=== PATIENT | male | born 1965 | race Caucasian/White ===

== ENCOUNTER 2016-09-19 14:22 | Inpatient (IN) | payer OTHER ==
[~2016-09-19] VITALS: Ht 182.9 cm; Wt 78.9 kg
[~2016-09-19 14:22] MED LIST: ALEVE220 MG PO; CHLORASEPTI EXT; CLEOCIN HCL300 MG PO; CLINDAMYCIN HY300 MG PO; FOLIC ACID 1 MG PO; IBUPROFEN600 MG PO; IBUPROFEN800 MG PO; LIBRIUM25 MG PO; LORAZEPAM1 MG PO; OMEPRAZOLE D/R20 MG PO; OMEPRAZOLE40 MG PO; PRILOSEC 20MG C20 MG PO; TYLENOL TAB 32325 MG PO; TYLENOL500 MG PO; Theragran Vitamins PO; VITAMIN B1100 MG PO
--- NOTE | 2016-09-19 14:29 | NUR ---
PT STATES HE FELL OUT OF TREE (APPROXIMATELY 30 FEET) ON 09/17, C/O PAIN IN R RIBS, BACK AND R ANKLE. STATES HE HIT HIS HEAD AND FEELS "SPACEY". UNSTEADY GAIT IN TRIAGE. STATES HE STOPPED DRINKING 4 DAYS AGO, (WAS DRINKING 2 PINTS VODKA AND 8 BEERS/DAY)
--- NOTE | 2016-09-19 15:08 | NUR ---
PT REPORTS HE WAS WORKING AND FELL OFF LADDER, STORY AMBIGUOUSLY CHANGES AND INTITALLY REPORTED 30 FOOT FALL AND THEN 20 FOOT AND THEN UNABLE TO QUANTIFY DISTANCE. FELL TOWARDS HIS SIDE AND ONTO TARP. NO ONE ON SCENE ACTIVATED EMS "BECAUSE THERE WASNT ANY BLOOD." STATES HE HIS BACK OF HIS HEAD, FEELS FOGGY AND OFF SINCE. NEUROS INTACT ON ARRIVAL, PUPILS EQUAL AND REACTIVE. DEMONSTRATES FULL ROM OF ALL JOINTS. STATES HE TOOK ALEVE THE FIRST AND SECOND DAY WITH MINIMAL EFFECT, NONE TODAY. LAST PO INTAKE 1400, JUST WATER. CALM AND COOPERATIVE AT THIS TIME. #18 EST AND LABS DRAWN AND SENT (BLUE, SST X2, LAV, PINK, ESCALANTE). EKG IN PROGRESS
[2016-09-19 15:13] VITALS: BP 104/60
--- NOTE | 2016-09-19 15:14 | ED MVC/FALL/TRAUMA COMPLAINT ---
History of Present Illness General Chief Complaint: Fall Stated Complaint: ADRIANNE RIB,BACK AND MEEHAN PAIN S/P FALL Source: patient Exam Limitations: no limitations Vital Signs & Intake/Output Vital Signs & Intake/Output Vital Signs Date Time Temp Pulse Resp B/P B/P Pulse O2 O2 Flow FiO2 Mean Ox Delivery Rate 09/24 0200 97.4 57 16 124/80 06/ 0000 97.4 61 16 125/83 06/19 0000 97.4 61 16 123/83 95 Room Air 18 2200 98.8 59 18 123/84 18 2000 98.8 69 18 114/47 18 1800 97.7 78 18 118/78 18 1600 97.7 58 16 120/70 18 1600 94 Room Air Room Air 09/23 1600 97.7 58 16 120/70 91 Room Air Room Air 18 1500 99.0 64 16 114/72 18 1400 99.0 76 16 113/76 18 1200 99.0 60 16 120/80 18 1200 94 Room Air Room Air 09/23 1105 Room Air 09/23 1100 98.6 64 16 125/83 18 1030 95 Room Air 18 1000 98.6 60 18 145/96 18 0800 98.6 68 16 148/90 18 0800 96 Nasal 2.0L Cannula 09/23 0800 98.6 68 16 148/90 96 Nasal 2.0L Cannula 09/23 0600 50 28 140/87 ED Intake and Output 09/24 0000 09/23 1200 Intake Total 2268 562 Output Total Balance 2268 562 Intake, IV 1198 562 Intake, Oral 1070 Allergies Coded Allergies: Penicillins (ITCHINESS 01/05/16) tramadol (DOESN'T REMEMBER 01/05/16) Reconcile Medications No Known Home Medications Triage Note: PT STATES HE FELL OUT OF TREE (APPROXIMATELY 30 FEET) ON 09/17, C/O PAIN IN R RIBS, BACK AND R ANKLE. STATES HE HIT HIS HEAD AND FEELS "SPACEY". UNSTEADY GAIT INTRIAGE. Triage Nurses Notes Reviewed? yes Onset: Gradual Duration: day(s): (3) Timing: no prior history Severity: moderate Severity Numbers: 8 Injuries/Fall Location: head, chest Method of Injury: fall Loss of Consciousness: no loss of consciousness Modifying Factors: Worsens With: breathing, palpation. HPI: Patient is a 50-year-old male with history of alcohol abuse, stopped drinking approximately 4 days ago presenting to the emergency department with chief complaint of fall off a 20 foot ladder on Saturday. Patient reports that he was at work was climbing a ladder at work and slipped off one of the rungs and fell and landed on his chest wall. Patient also reports he hit the back of his head. Denies any LOC. Reports that he's been feeling "foggy" since the incident. He didn't notice any blood after the incident and was able to get up so no one at the worksite told him to come to the emergency department for evaluation of the time. Patient came in today for worsening bilateral rib pain. Pain is worse when he palpates his ribs or when he takes a deep breath. Denies any abdominal pain. He does report shortness of breath when he tries to take a deep breath. No nausea or vomiting. Patient reports that he has not drank alcohol in the past 4 days. No other drug use. Denies any visual changes. No urinary incontinence or retention. No numbness or tingling or weakness. His son brought him to the emergency department today for evaluation because he wasn't feeling well. Has been taking [id number] Tylenol for his pain with little relief. Denies any hemoptysis. Symptoms currently moderate. Seems to be progressing so he came in for evaluation. Denies any decreased urination, no change in color of urine. Denies any change in any bowel habits. (KATERINA WEST) Past History Travel History Traveled to [place] past 21 day No Medical History Any Pertinent Medical History? see below for history Neurological: seizure, FROM ETOH DETOX EENT: NONE Cardiovascular: NONE Respiratory: NONE Gastrointestinal: pancreatitis, peptic ulcer disease Hepatic: NONE Renal: NONE Musculoskeletal: NONE Psychiatric: alcohol dependence, substance abuse Endocrine: NONE Blood Disorders: NONE Cancer(s): NONE DIRECTOR MARKETING/Reproductive: NONE History of MRSA: No History of VRE: No History of CDIFF: No Pneumonia Vaccine: 05/20/14 Tetanus Vaccine: 07/03/12 Surgical History Surgical History: VARICOSE VEIN TUMOR REMOVED CHEST WALL Psychosocial History Who do you live with Patient/Self Services at Home None What is your primary language Samoan Tobacco Use: Never used ETOH Use: denies use Family History Family History, If Any: FATHER (Hypertension, heart disease, diabetes). Alcohol abuse and dependence Grandmother (Throat cancer). Alcohol abuse and dependence Hx Contributory? No (KATERINA WEST) Review of Systems Review of Systems Constitutional: Reports: malaise. Comments Review of systems: See HPI, All other systems negative. Constitutional, no chills fever or weight loss HEENT: No visual changes no sore throat no congestion Cardiovascular: NO palpitation , orthopnea or ankle swelling Skin, no jaundice no rashes Respiratory: No cough sputum or hemoptysis GI: No nausea no vomiting : No dysuria No hematuria Muscle skeletal: Positive neck and back pain Neurologic: No numbness Psych: No stress anxiety or depression,. Heme/endocrine: No bruising no bleeding no polyuria or polydipsia Immunology: No splenectomy or history of AIDS (KATERINA WEST) Physical Exam Physical Exam General Appearance: well developed/nourished, no apparent distress, alert, awake , comfortable Comments: Well-developed well-nourished person in no acute distress HEENT: Normal EENT exam, extraocular motion intact, no nystagmus. Pupils equally round and reactive to light and accommodation, pupils are slow to response bilaterally, Nose is atraumatic. No pain to palpation over the nasal bridge. External auditory canal and Tympanic membranes clear. Pharynx normal. No swelling or edema. No step-off or bogginess palpated over entire scalp. No hematomas. No pain to palpation over entire scalp. Neck: Supple, no lymphadenopathy, normal range of motion without pain or tenderness. C-spine tenderness to palpation over C6, C7. No crepitus palpated over this area. Back: Tenderness to palpation in the lumbar spine bilaterally over the paraspinal muscles. No bony tenderness. Full range of motion. Negative straight-leg raise bilaterally. Cardiovascular: Tachycardic rate and rhythms no murmurs rubs or gallops, normal JVP Respiratory: Chest wall is tender to palpation over the right lateral ribs as well as the left lateral ribs no signs of ecchymosis or trauma. No respiratory distress.breath sounds clear to auscultation bilaterally Abdomen: Soft, nontender nondistended, no appreciable organomegaly. Normal bowel sounds. No ascites, umbilical hernia present that is reducible. No ecchymosis noted over the abdomen. Extremity: Mild edema noted over the dorsum of the right foot with ecchymosis, no calf tenderness to palpation, normal and equal pulses. Nontender to palpation over the ankles bilaterally, tib-fib region, patella or femurs.. Pelvis is stable to palpation. Neuro: Alert oriented x3, motor sensory normal, cranial nerves II through XII grossly intact. Cerebellar testing is unremarkable. Able to perform finger to nose testing without difficulty. Patellar reflexes are 2+ bilaterally. Skin: Ecchymosis noted over the dorsum of the right foot, otherwise No appreciable rash on exposed skin, skin is warm and dry. No signs of other trauma, lacerations or hematomas. Psych: Seems slightly confused but answers questions appropriately, slightly delayed response and answering questions. Core Measures ACS in differential dx? Yes Severe Sepsis Present: No Septic Shock Present: No (KIAN MATOS,KATERINA) Progress Differential Diagnosis: FOOT FRACTURE, POSTCONCUSSIVE SYNDROME, ALCOHOL WITHDRAWAL, ELECTROLYTE ABNORMALITY, DEHYDRATION, CERVICAL SPINE FRACTURE, INTRACRANIAL HEMORRHAGE, SKULL FRACTURE, DEHYDRATION, ACUTE KIDNEY INJURY, RHABDO Plan of Care: Orders Procedure Date/time Status ICU LAB BUNDLE 09/24 0500 Complete CBC WITHOUT DIFFERENTIAL 09/24 0500 Complete Restraint- Medical 09/23 1139 Active RT: Evaluation 09/23 1103 Active OXYGEN SETUP (GEN) 09/23 UNK Complete MISSING MEDICATION FORM 09/23 UNK Active Current Medications Sig/Nidhi Start time Last Medication Dose Stop Time Status Admin Chlordiazepoxide HCl 50 MG Q6 09/23 1200 AC 09/23 (Librium) 2338 Thiamine HCl 250 MG DAILY 09/23 1000 AC 09/23 (Vitamin B-1) 09/27 1030 1108 Sodium Chloride 100 ML (Normal Saline 0.9%) Ferrous Sulfate 325 MG TID 09/22 2200 AC 09/23 (Feosol) 2151 Lorazepam 100 MG Q20H 09/22 0400 AC 09/23 (Ativan Drip) 2151 Sodium Chloride 1,000 ML (Normal Saline 0.9%) Haloperidol 1 MG Q4P PRN 09/20 1600 AC 09/22 (Haldol) 2028 Lorazepam 1 MG Q2P PRN 09/20 1415 AC 09/22 (Ativan) 203 Hydromorphone HCl 0.2 MG Q6P PRN 09/19 2030 AC (Dilaudid) Acetaminophen 1,000 MG Q6P PRN 09/19 2014 AC (Ofirmev) Ibuprofen 600 MG Q6P PRN 09/19 2014 AC 09/21 (Motrin) 1610 Lorazepam 2 MG Q2P PRN 09/19 2014 AC 09/23 (Ativan) 0949 Lorazepam 1 MG Q2P PRN 09/19 2014 AC (Ativan) Laboratory Tests 09/24/16 0430: Anion Gap 8, Estimated GFR > 60, Glucose 92, Calcium 8.9, Phosphorus 4.0, Magnesium 1.8, Total Bilirubin 0.3, AST 35, ALT 46, Albumin 3.3 L, CBC w Diff NO MAN DIFF REQ, RBC 3.73 L, MCV 93.6, MCH 31.2 H, RDW 13.5, MPV 6.4 L, Gran % 54.1, Lymphocytes % 25.4, Monocytes % 17.2 H, Eosinophils % 1.9, Basophils % 1.4, Absolute Granulocytes 2.4, Absolute Lymphocytes 1.1 L, Absolute Monocytes 0.8 H, Absolute Eosinophils 0.1, Absolute Basophils 0.1, PUBS MCHC 33.3 Diagnostic Imaging: Viewed by Me: Radiology Read, CT Scan. Discussed w/RAD: Radiology Read, CT Scan. Radiology Impression: ATIENT: NOLBERTO HANSEN PRESENT AGE: 50 PATIENT ACCOUNT NO: [id number] : 67 LOCATION: [facility] ORDERING PHYSICIAN: KATERINA MATOS SERVICE DATE: 09/19/16 EXAM TYPE: CAT - CT ABD & PELVIS W/O IV CONTRAS; CT CHEST WO IV CONTRAST EXAMINATION: CT CHEST WITHOUT CONTRAST CT ABDOMEN AND PELVIS WITHOUT CONTRAST CLINICAL INFORMATION: Fall from height. Pain. COMPARISON: Lumbar spine radiographs from 05/17/2015 TECHNIQUE: Multidetector volumetric imaging was performed through the chest, abdomen and pelvis without use of contrast. Sagittal and coronal reformatted images were obtained on the technologist's workstation. Axial MIP volume rendering provided. DLP: 379 mGy-cm. FINDINGS: CHEST: Lungs: The central airways are patent. The lungs are clear with no evidence of consolidation. No pleural effusion or pneumothorax. There are no pulmonary parenchymal nodules. Mediastinum: The mediastinum is normal. Central vascular structures are unremarkable. No evidence of traumatic aortic injury. No hilar or mediastinal lymphadenopathy. The heart is of normal size. There is no pericardial effusion. Chest Wall/Axilla: No lymphadenopathy. No chest wall mass. ABDOMEN/PELVIS: Liver , Gallbladder, Biliary Tree: The liver is normal in size, shape, and attenuation. No focal hepatic lesion or biliary ductal dilatation is present. The gallbladder is unremarkable with no evidence of radiopaque gallstones, gallbladder wall thickening, or pericholecystic inflammatory changes. Pancreas: Unremarkable. Spleen: Unremarkable. Adrenal Glands: Unremarkable. Kidneys and Ureters: The kidneys are normal in size, shape, and attenuation. No hydronephrosis, hydroureter or calculi seen. No perinephric stranding. Bladder: Unremarkable. Gastrointestinal Tract: The stomach and small bowel appear unremarkable. No dilated loops of bowel or evidence of obstruction. There is prominent diverticulosis of the descending and sigmoid colon without evidence of diverticulitis.. No colonic wall thickening or adjacent inflammatory changes. No free air or free fluid. The appendix is unremarkable. Abdominal Wall: No hernia is demonstrated. Lymphovascular Structures: Lymph nodes: Normal. Vascular: Unremarkable. Pelvic Viscera: The prostate and seminal vesicles are unremarkable. OSSEOUS STRUCTURES: No suspicious sclerotic or lytic bone lesions are identified. The clavicles are intact. The sternum is intact. There is a right lateral fifth rib fracture which is mildly displaced. There is overlying pleural thickening. Nondisplaced right lateral sixth rib fracture. Vertebral body alignment is maintained. Mild loss of height at the L1, L2, and L4 vertebral bodies is noted, which appear chronic. Endplate osteophytes are seen at these levels. The pelvis is intact. The sacroiliac joints and pubic symphysis are intact. IMPRESSION: 1. Right lateral fifth rib fracture with mild overlying pleural thickening. No pneumothorax or lung contusion. 2. Nondisplaced right lateral sixth rib fracture. 3. No additional traumatic findings of the chest, abdomen, or pelvis. Colonic diverticulosis. DICTATED BY: NISH JENKINS MD DATE/TIME DICTATED:09/19/161627 SALESPERSON NEW CARS:VONNIE DATE/TIME TRANSCRIBED:09/19/161627 CONFIDENTIAL, DO NOT COPY WITHOUT APPROPRIATE AUTHORIZATION. <Electronically signed in Other Vendor System> SIGNED BY: NISH JENKINS MD 09/19/161637, PATIENT: NOLBERTO HANSEN PRESENT AGE: 50 PATIENT ACCOUNT NO: [id number] : 69 LOCATION: [facility] ORDERING PHYSICIAN: KATERINA MATOS SERVICE DATE: 09/19/16 EXAM TYPE: CAT - CT CERV SPINE WO IV CONTRAST; CT HEAD WO IV CONTRAST EXAMINATION: NONCONTRAST HEAD CT NONCONTRAST CERVICAL SPINE CT INDICATION INFORMATION: Fall. Head strike. COMPARISON: 05/17/2015 TECHNIQUE: Separate noncontrast CT examinations of the head and cervical spine were performed. Coronal and sagittal images were created for each examination at the technologist workstation. FINDINGS: Head: There is no evidence of acute intracranial hemorrhage or territorial infarction. No abnormal mass effect or midline shift is seen. Stanton to white matter differentiation is well preserved. No extra-axial fluid collections are identified. No hydrocephalus. No significant volume loss. There is no abnormal attenuation within the brain parenchyma. The osseous structures and soft tissues are normal. The mastoid air cells are well aerated. There may be a right nasal cavity polyp. This appears similar to prior. Partial opacification of the left maxillary sinus. Cervical spine: There is anatomic alignment of the vertebral bodies and posterior elements. The atlantoaxial and atlantooccipital articulations are intact. Vertebral body heights are maintained. There is disc space narrowing at C5-C6 and C6-C7 which has mildly progressed from prior. Prominent endplate osteophytes are present at these levels. No evidence of acute fracture. No prevertebral soft tissue swelling. Visualized portions of the lung apices are unremarkable. The thyroid gland is unremarkable. IMPRESSION: 1. No acute intracranial findings. 2. No acute fracture or malalignment of the cervical spine. Degenerative changes at C5-C6 and C6-C7. 3. Redemonstration of a right nasal cavity polyp. DICTATED BY: ALICE RODGERS,NISH DATE/TIME DICTATED:09/19/161623 SALESPERSON NEW CARS: VONNIE DATE/TIME TRANSCRIBED:09/19/161623 CONFIDENTIAL, DO NOT COPY WITHOUT APPROPRIATE AUTHORIZATION. <Electronically signed in Other Vendor System> SIGNED BY: ALICE RODGERS,NISH 09/19/16 1631 Initial ED EKG: SINUS TACHY AT 110 Comments: 09/19/2016 3:09:13 PM on arrival patient is alert and oriented, seems intermittently confused, answers questions slowly at times. Patient has not drank any alcohol the past 4 days. This could be withdrawal. Patient also tachycardic on arrival. We will assess a CBC, CMP, EtOH level, urine drug screen and urinalysis. Also ordered CK, CT of the head, neck, chest and abdomen. X-ray ordered of the right foot secondary to contusion. 09/19/2016 6:00:36 PM patient recently started having hallucinations. He reported that the urinal to urinate and was half full and a came out as water. Patient sustained that there is fluid in the urinal and nothing is in there. Patient started on IV Ativan. Patient will need to be admitted for alcohol detox, acute kidney injury, rhabdo. Patient also given by mouth potassium for slight hypokalemia. 09/19/2016 7:13:46 PM patient starting to have more frequent visual hallucinations. Patient will be started on Ativan drip and admitted to the ICU. Rate started at 2 mg an hour. 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 Rhabdomyolysis Qualifiers: Rhabdomyolysis type: traumatic Encounter type: initial encounter Qualified Code: T79.6XXA - Traumatic ischemia of muscle, initial encounter Rib fractures Qualifiers: Encounter type: initial encounter Rib fracture type: multiple ribs Fracture type: closed Laterality: right Qualified Code: S22.41XA - Multiple fractures of ribs, right side, initial encounter for closed fracture Referrals: AMRITA HOPPER (PCP/Family) Departure Forms: Customer Survey General Discharge Information Prescriptions: Current Visit Scripts No Known Home Medications Admission Note Spoke With: JUANITA GOMEZ MD Documentation of Exam: Documentation of any treatments & extenuating circumstances including Concerns Regarding Discharge (functional status, medication knowledge or non-compliance, living conditions, etc.) that warrant an admission rather than observation: Patient requirinG IV fluids for acute renal failure, rhabdomyolysis. Also requiring IV and by mouth Ativan for alcohol withdrawal symptoms, repeat BUN and creatinine after fluids to assess if symptoms are improving with IV hydration. Discharge at this time would be medically harmful. Patient will need Ativan taper for alcohol withdrawal. History of seizures with withdrawal in the past. (KATERINA WEST) PA/CFO Co-Sign Statement Statement: ED Attending supervision documentation- [] I saw and evaluated the patient. I have also reviewed all the pertinent lab results and diagnostic results. I agree with the findings and the plan of care as documented in the PA's/CFO's documentation. [X] I have reviewed the ED Record and agree with the PA's/CFO's documentation. [] Additions or exceptions (if any) to the PAs/CFO's note and plan are summarized below: [] (SURI RODGERS,MIRELA) Critical Care Note Critical Care Note Critical Care Time: 30-74 min (KATERINA WEST) 09/19/2016 6:00:36 PM patient recently started having hallucinations. He reported that the urinal to urinate and was half full and a came out as water. Patient sustained that there is fluid in the urinal and nothing is in there. Patient started on IV Ativan. Patient will need to be admitted for alcohol detox, acute kidney injury, rhabdo. Patient also given by mouth potassium for slight hypokalemia. 09/19/2016 7:13:46 PM patient starting to have more frequent visual hallucinations. Patient will be started on Ativan drip and admitted to the ICU. Rate started at 2 mg an hour. 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 Rhabdomyolysis Qualifiers: Rhabdomyolysis type: traumatic Encounter type: initial encounter Qualified Code: T79.6XXA - Traumatic ischemia of muscle, initial encounter Rib fractures Qualifiers: Encounter type: initial encounter Rib fracture type: multiple ribs Fracture type: closed Laterality: right Qualified Code: S22.41XA - Multiple fractures of ribs, right side, initial encounter for closed fracture Referrals: AMRITA HOPPER (PCP/Family) Departure Forms: Customer Survey General Discharge Information Prescriptions: Current Visit Scripts No Known Home Medications Admission Note Spoke With: JUANITA GOMEZ MD Documentation of Exam: Documentation of any treatments & extenuating circumstances including Concerns Regarding Discharge (functional status, medication knowledge or non-compliance, living conditions, etc.) that warrant an admission rather than observation: Patient requirinG IV fluids for acute renal failure, rhabdomyolysis. Also requiring IV and by mouth Ativan for alcohol withdrawal symptoms, repeat BUN and creatinine after fluids to assess if symptoms are improving with IV hydration. Discharge at this time would be medically harmful. Patient will need Ativan taper for alcohol withdrawal. History of seizures with withdrawal in the past. Critical Care Note Critical Care Note Critical Care Time: 30-74 min
--- NOTE | 2016-09-19 15:19 | NUR ---
CERIVAL COLLAR APPLIED TO PT. CMS PRESENT AND EQUAL IN ALL EXTREMITIES PRE AND POST APPLICATION
--- NOTE | 2016-09-19 15:21 | NUR ---
PT TO XRAY VIA STRETCHER
--- NOTE | 2016-09-19 15:26 | NUR ---
PT RETURN FROM RADIOLOGY
[2016-09-19 15:27] LABS: ABSOLUTE BASOPHIL COUNT 0 /CUMM (0.0-0.2); ABSOLUTE EOSINOPHIL COUNT 0 /CUMM (0.0-0.7); ABSOLUTE GRANULOCYTE CT 11.2 /CUMM (1.4-6.5); ABSOLUTE MONOCYTE COUNT 1.1 /CUMM (0.10-0.60); BASOPHIL % 0 % (0.0-2.0); EOSINOPHIL % 0 % (0-5); HEMATOCRIT 47.6 % (42-52); MEAN CORPUSCULAR HGB 30.9 PG (27.0-31.0); MEAN CORPUSCULAR HGB CONC 33.7 G/DL (33.0-37.0); MEAN CORPUSCULAR VOLUME 91.6 FL (80.0-94.0); MEAN PLATELET VOLUME 7.7 FL (7.4-10.4); PLATELET COUNT 107 /CUMM (130-400); RBC DISTRIBUTION WIDTH 13.6 % (11.5-14.5); WHITE BLOOD CELL COUNT 13.3 /CUMM (4.8-10.8)
[2016-09-19 15:29] LABS: PT 11.3 SEC (9.4-12.5); PTT 36 SEC (25-37)
[2016-09-19 15:31] LABS: GRANULOCYTE % 84.5 % (42.2-75.2)
--- NOTE | 2016-09-19 15:37 | RADIOLOGY REPORT ---
EXAMINATION: XR FOOT, RIGHT CLINICAL INFORMATION: Pain status post fall COMPARISON: 10/24/2009 TECHNIQUE: AP, lateral, and oblique views of the right foot. FINDINGS: No acute fracture or dislocation. Alignment is anatomic. Degenerative changes are seen at the second metatarsophalangeal joint with joint space narrowing and osteophyte formation. This is similar to the prior study. The appearance may be from prior chronic trauma. Mild degenerative changes also seen at the first metatarsophalangeal joint with joint space narrowing. Mild soft tissue swelling at the first metatarsophalangeal joint. IMPRESSION: No acute fracture or dislocation. Mild degenerative changes with chronic changes at the second metatarsophalangeal joint.
--- NOTE | 2016-09-19 16:07 | NUR ---
PT TO CT VIA STRETCHER
--- NOTE | 2016-09-19 16:30 | NUR ---
NS IVF BOLUS RUNNING PER eMAR. RT AT BEDSIDE FOR ABG
--- NOTE | 2016-09-19 16:31 | CT SCAN REPORT ---
EXAMINATION: NONCONTRAST HEAD CT NONCONTRAST CERVICAL SPINE CT INDICATION INFORMATION: Fall. Head strike. COMPARISON: 05/17/2015 TECHNIQUE: Separate noncontrast CT examinations of the head and cervical spine were performed. Coronal and sagittal images were created for each examination at the technologist workstation. FINDINGS: Head: There is no evidence of acute intracranial hemorrhage or territorial infarction. No abnormal mass effect or midline shift is seen. Stanton to white matter differentiation is well preserved. No extra-axial fluid collections are identified. No hydrocephalus. No significant volume loss. There is no abnormal attenuation within the brain parenchyma. The osseous structures and soft tissues are normal. The mastoid air cells are well aerated. There may be a right nasal cavity polyp. This appears similar to prior. Partial opacification of the left maxillary sinus. Cervical spine: There is anatomic alignment of the vertebral bodies and posterior elements. The atlantoaxial and atlantooccipital articulations are intact. Vertebral body heights are maintained. There is disc space narrowing at C5-C6 and C6-C7 which has mildly progressed from prior. Prominent endplate osteophytes are present at these levels. No evidence of acute fracture. No prevertebral soft tissue swelling. Visualized portions of the lung apices are unremarkable. The thyroid gland is unremarkable. IMPRESSION: 1. No acute intracranial findings. 2. No acute fracture or malalignment of the cervical spine. Degenerative changes at C5-C6 and C6-C7. 3. Redemonstration of a right nasal cavity polyp.
--- NOTE | 2016-09-19 16:38 | CT SCAN REPORT ---
EXAMINATION: CT CHEST WITHOUT CONTRAST CT ABDOMEN AND PELVIS WITHOUT CONTRAST CLINICAL INFORMATION: Fall from height. Pain. COMPARISON: Lumbar spine radiographs from 05/17/2015 TECHNIQUE: Multidetector volumetric imaging was performed through the chest, abdomen and pelvis without use of contrast. Sagittal and coronal reformatted images were obtained on the technologist's workstation. Axial MIP volume rendering provided. DLP: 379 mGy-cm. FINDINGS: CHEST: Lungs: The central airways are patent. The lungs are clear with no evidence of consolidation. No pleural effusion or pneumothorax. There are no pulmonary parenchymal nodules. Mediastinum: The mediastinum is normal. Central vascular structures are unremarkable. No evidence of traumatic aortic injury. No hilar or mediastinal lymphadenopathy. The heart is of normal size. There is no pericardial effusion. Chest Wall/Axilla: No lymphadenopathy. No chest wall mass. ABDOMEN/PELVIS: Liver, Gallbladder, Biliary Tree: The liver is normal in size, shape, and attenuation. No focal hepatic lesion or biliary ductal dilatation is present. The gallbladder is unremarkable with no evidence of radiopaque gallstones, gallbladder wall thickening, or pericholecystic inflammatory changes. Pancreas: Unremarkable. Spleen: Unremarkable. Adrenal Glands: Unremarkable. Kidneys and Ureters: The kidneys are normal in size, shape, and attenuation. No hydronephrosis, hydroureter or calculi seen. No perinephric stranding. Bladder: Unremarkable. Gastrointestinal Tract: The stomach and small bowel appear unremarkable. No dilated loops of bowel or evidence of obstruction. There is prominent diverticulosis of the descending and sigmoid colon without evidence of diverticulitis.. No colonic wall thickening or adjacent inflammatory changes. No free air or free fluid. The appendix is unremarkable. Abdominal Wall: No hernia is demonstrated. Lymphovascular Structures: Lymph nodes: Normal. Vascular: Unremarkable. Pelvic Viscera: The prostate and seminal vesicles are unremarkable. OSSEOUS STRUCTURES: No suspicious sclerotic or lytic bone lesions are identified. The clavicles are intact. The sternum is intact. There is a right lateral fifth rib fracture which is mildly displaced. There is overlying pleural thickening. Nondisplaced right lateral sixth rib fracture. Vertebral body alignment is maintained. Mild loss of height at the L1, L2, and L4 vertebral bodies is noted, which appear chronic. Endplate osteophytes are seen at these levels. The pelvis is intact. The sacroiliac joints and pubic symphysis are intact. IMPRESSION: 1. Right lateral fifth rib fracture with mild overlying pleural thickening. No pneumothorax or lung contusion. 2. Nondisplaced right lateral sixth rib fracture. 3. No additional traumatic findings of the chest, abdomen, or pelvis. Colonic diverticulosis.
[2016-09-19 17:33] VITALS: BP 140/93
--- NOTE | 2016-09-19 17:33 | NUR ---
PT ATTEMPTED TO PROVIDE URINE SAMPLE. WHEN PT PROVIDED THIS RN WITH URINAL, PT REPORTED HIS URINE WAS REALLY CLEAR AND LIKE "WATER". PT INFORMED THAT THERE WAS NO URINE IN URINAL. PT DISAGREED WITH RN AND POINTED TO APPROXIMATELY HALF WAY UP THE URINAL STATING THE URINE WAS TO THAT LINE
--- NOTE | 2016-09-19 17:48 | NUR ---
2ND LITER NS BOLUS STARTED. PT MEDICATED WITH ATIVAN 1MG IVP PER CIWA. PT ALSO MEDICATED WITH K-DUR 40 MEQ
[2016-09-19 18:29] VITALS: BP 154/80
--- NOTE | 2016-09-19 18:30 | NUR ---
MEDICATED WITH PO ATIVAN
--- NOTE | 2016-09-19 18:39 | NUR ---
URINE SAMPLES OBTAINED AND SENT TO LAB ([facility])
--- NOTE | 2016-09-19 19:11 | NUR ---
ATTEMPTED TO CHANGE THE PATIENT INTO GOWN AND OUT OF SHORTS, ABLE TO AMBULATE BUT STUMBLES AROUND ROOM AND THIS RN CAUGHT HIM 3 TIMES FROM FALLING. UNSTEADY ON FEET AND TREMULOUS. CONFUSED SPEECH, DISORGANIZED WITH PERIODS OF LUCIDITY WHERE HE IS ABLE TO ACCURATELY RECALL DAY AND PLACE, BUT IS FOCUSED ON STIMULI AROUND ROOM AND IS FOUND TALKING TO HIMSELF. DENIES AH/VH BUT APPEARS INTERNALLY PREOCCUPIED. CALM AND COOPERATIVE. ASSISTED BACK TO STRETCHER. DR MCCORD INFORMED AND MEDICATED WITH ADDITIONAL ATIVAL IV AND PLAN FOR 2MG PO WITH ATIVAN GTT TO START AT 2MG/HR
[2016-09-19 19:16] VITALS: BP 124/82
--- NOTE | 2016-09-19 19:27 | NUR ---
PT FOUND EATING THE PULSE OXIMETRY CORD, REDIRECTED AND PT CONFUSED WITH GARBLED SPEECH AND RAMBLING WORD SALAD. COMPLETELY DISORGANIZED MENTATION. REMAINS CALM AND REDIRECTABLE AT THIS TIME. O2 SAT STABLE, AIRWAY PATENT. CHARGE NURSE AWARE OF PLAN AND THAT PT REMAINS ON FALL PRECAUTIONS AND SITTER ORDER. DR GOMEZ IN ROOM FOR SHADIA
[2016-09-19 19:33] VITALS: BP 148/67
--- NOTE | 2016-09-19 19:39 | NUR ---
ADDITIONAL FLUID BOLUS TO LF #[id number]. ANUPAMA SUMMERS PRESENT FOR SAFETY. PT CONTINUES TO RESPOND TO VISUAL AND AUDITORY INTERNAL STIMULI. SINGING SONGS AND ATTEMPTING TO PICK APPLES CALLED MEAT STICKS. PT REDIRECTABLE AND VERBAL, BUT REMAINS DISORGANIZED
--- NOTE | 2016-09-19 19:42 | NUR ---
DR RODRIGUEZ AT BEDSIDE FOR EVAL
--- NOTE | 2016-09-19 20:08 | History & Physical ---
CHALO MANCILLA 09/19/162004: General Information and HPI MD Statement: I have seen and personally examined NOLBERTO GANN and documented this H&P. The patient is a 50 year old M who presented with a patient stated chief complaint of [ALCOHOL WITHDRAWAL]. Source of Information: family Exam Limitations: unable to give history, not alert/orientated, confusion, poor historian History of Present Illness: This is a 50-year-old gentleman with past medical history of alcohol dependence, previous alcohol withdrawal seizure on multiple occassions previous ICU admission including intubation for alcohol withdrawal, cocaine abuser, prior episode of pancreatitis, peptic ulcer disease came in after chief complain of mechanical fall and alcohol withdrawal. The patient was very anxious, tremulous,deliriuos, was hallucinating, was not alert oriented, was picking meatballs in the evelia and no significant information could be obtained from him. Most of the history taking was obtained from his son Nolberto Gann, whom we contacted at [phone].Apparently the patient has been drinking for last 20-30 years on and off. He has e period of continuos 6 months of drinking, wakes up and has a drink every day, on an average he would drink 20 nips of vodka every day. There might be a period of 3 months where he would be sober, however he would revert back to drinking again. Mr. Acuna went to a constitution party 1 week ago, where he was on top of jumpy [employer] and somebody fell on top of him, and after that he was having severe pain in his right ribs. Apparently he thought that he would have broken his ribs however never saw Dr. He reverted to drinking because of extreme pain. He has not been eating and drinking well since last 2-3 days again secondary to the pain. As per the son he looks really skinny must have lost 10-15 pounds in the last 2-3 days. He sees him every day and he was trying to bring him some water and Gatorade, however he was hallucinating and shaking, he has not taken any drink in last 3-4 days.His last drink woudl have been 3 to 4 [employer],however he wasnt completely sure about it.Mr. Acuna has had previous multiple admissions, on an average has alcohol related seizures once every year for past 8-10 years. He is also been previously admitted in ICU for Ativan drip, has been intubated secondary to alcohol intoxication. He was in IOP many years ago however in last 10-20 years he has never been in any IOP program as well. He also snorts and sniffs cocaine, uses crack cocaine on and off. The patient could not give us any significant review of systems. Allergies/Medications Allergies: Coded Allergies: Penicillins (ITCHINESS 01/05/16) tramadol (DOESN'T REMEMBER 01/05/16) Home Med list No Known Home Medications Compliance With Home Meds: FAIR Past History Travel History Traveled to [place] past 21 day No Medical History Neurological: seizure, FROM ETOH DETOX EENT: NONE Cardiovascular: NONE Respiratory: NONE Gastrointestinal: pancreatitis, peptic ulcer disease Hepatic: NONE Renal: NONE Musculoskeletal: NONE Psychiatric: alcohol dependence, substance abuse Endocrine: NONE Blood Disorders: NONE Cancer(s): NONE RETAIL SALES DIRECTOR/Reproductive: NONE History of MRSA: No History of VRE: No History of CDIFF: No Isolation History: Standard Pneumonia Vaccine: 05/20/14 Tetanus Vaccine: 07/03/12 Surgical History Surgical History: VARICOSE VEIN TUMOR REMOVED CHEST WALL Past Family/Social History Family History Relations & Conditions if any FATHER (Hypertension, heart disease, diabetes). Alcohol abuse and dependence Grandmother (Throat cancer). Alcohol abuse and dependence Psychosocial History Where do you live? Home Who Do You Live With? self Services at Home: None Primary Language: Syrian Smoking Status: Never Smoked ETOH Use: heavy use Illicit Drug Use: cocaine Functional Ability ADLs Independent: dressing, eating, toileting, bathing. Ambulation: independent IADLs Independent: shopping, housework, finances, food prep, telephone, transportation , medication admin. Review of Systems Review of Systems Constitutional: Reports: see HPI. EENTM: Reports: see HPI. Cardiovascular: Reports: see HPI. Respiratory: Reports: see HPI. GI: Reports: see HPI. Genitourinary: Reports: see HPI. Musculoskeletal: Reports: see HPI. Skin: Reports: see HPI. Neurological/Psychological: Reports: ataxia, confusion, tremors. Exam & Diagnostic Data Last 24 Hrs of Vital Signs/I&O Vital Signs Date Time Temp Pulse Resp B/P B/P Pulse O2 O2 Flow FiO2 Mean Ox Delivery Rate 09/19 1932 104 16 148/67 06/14 1931 98.0 105 16 148/67 97 Room Air 09/19 1916 98.9 90 98 124/82 09/19 1914 98.9 90 16 124/82 99 Room Air 09/19 1829 94 16 154/80 09/19 1828 94 16 154/80 96 Room Air 09/19 1735 97.8 97 18 140/93 96 Room Air 09/19 1733 97.8 97 18 140/93 09/19 1648 98.4 96 16 112/84 97 Room Air 09/19 1513 112 16 104/60 09/19 1513 96 Room Air 09/19 1512 112 16 104/60 96 Room Air 09/19 1430 95.7 112 18 105/80 96 Room Air Intake & Output 09/19 1600 09/19 0800 09/19 0000 Intake Total Output Total Balance Patient 79.379 kg Weight Weight Reported by Patient Measurement Method Physical Exam General Appearance tremulous, hallucinating, not oriented, agitated Skin milia rubra kind of maculo paular pinpoint rash on the back, and soem og the chest Skin Temp/Moisture Exam: Warm/Dry Sepsis Skin Exam (color): Normal for Ethnicity HEENT Atraumatic, PERRLA, EOMI Neck Supple, No JVD Lymphatic no lad Cardiovascular Normal S1, Normal S2, No Murmurs, tacychardic Lungs Clear to Auscultation, Normal Air Movement Abdomen Normal Bowel Sounds, Soft, No Tenderness Neurological Normal Tone, Reflexes 2+, tremors present, hallucination,complete nuero exam couldnot be done, as patient couldnot follow commands, Extremities No Clubbing, No Cyanosis, No Edema, Normal Pulses Vascular Normal Pulses Last 24 Hrs of Labs/Thomas: Laboratory Tests 09/19/161947: Sodium Pending, Potassium Pending, Chloride Pending, Carbon Dioxide Pending, Anion Gap Pending, BUN Pending, Creatinine Pending, BUN/Creatinine Ratio Pending , Glucose Pending, Calcium Pending, Total Bilirubin Pending, AST Pending, ALT Pending, Alkaline Phosphatase Pending, Total Protein Pending, Albumin Pending, Globulin Pending, Albumin/Globulin Ratio Pending 09/19/16 1836: Urine Opiates Screen < 100.00, Methadone Screen < 40, Barbiturate Screen < 60, Ur Phencyclidine Scrn < 6.00, Amphetamines Screen < 100, U Benzodiazepines Scrn < 85, Urine Cocaine Screen 903 H, Urine Cannabis Screen < 5.00, Urine Color YEL , Urine Clarity HAZY H, Urine pH 5.5, Ur Specific Gilbert >= 1.030, Urine Protein 100 H, Urine Ketones 15 H, Urine Nitrite NEG, Urine Bilirubin NEG@ICTO , Urine Urobilinogen 1.0, Ur Leukocyte Esterase NEG, Ur Microscopic SEDIMENT EXAMINED, Urine RBC RARE, Urine WBC RARE, Ur Epithelial Cells FEW, Urine Bacteria MANY H, Hyaline Casts > 75 H, Urine Hemoglobin SMALL H, Urine Glucose NEG 09/19/16 1630: pH 7.47 H, pCO2 33 L, pO2 93, HCO3 23, ABG O2 Sat (Measured) 97.0, Carboxyhemoglobin 1.4 L, O2 Concentration % RA, O2 Delivery Method RA, Phlebotomy Draw Site LEFT RADIAL 09/19/16 1505: Anion Gap 22 H, Estimated GFR 26 L, BUN/Creatinine Ratio 18.1, Glucose 150 H, Calcium 9.9, Phosphorus 5.8 H, Magnesium 1.8, Total Bilirubin 1.7 H, AST 72 H , ALT 63, Alkaline Phosphatase 106, Creatine Kinase 730 H, Troponin I < 0.01, Total Protein 9.8 H, Albumin 5.4 H, Globulin 4.4 H, Albumin/Globulin Ratio 1.2, Amylase 75, Lipase 146, PT 11.3, INR 1.08, APTT 36, CBC w Diff MAN DIFF ORDERED, RBC 5.20, MCV 91.6, MCH 30.9, RDW 13.6, MPV 7.7, Gran % 84.5 H, Lymphocytes % 7.2 L, Monocytes % 8.3, Eosinophils % 0, Basophils % 0 L, Absolute Granulocytes 11.2 H, Absolute Lymphocytes 1.0 L, Absolute Monocytes 1.1 H, Absolute Eosinophils 0, Absolute Basophils 0, Platelet Estimate DECREASED, Normocytic RBCs VERIFIED, Normochromic RBCs VERIFIED, PUBS MCHC 33.7, Serum Alcohol < 10.0 09/19/16 1501: Amylase Cancelled, Lipase Cancelled Diagnostic Data EKG Results Sinus tachycardia at the rate of 110, CO of 164, QTC of 450, no acute ST-T wave changes. Other Results SERVICE DATE: 09/19/16-1516 EXAM TYPE: CAT - CT ABD & PELVIS W/O IV CONTRAS; CT CHEST WO IV CONTRAST IMPRESSION: 1. Right lateral fifth rib fracture with mild overlying pleural thickening. No pneumothorax or lung contusion. 2. Nondisplaced right lateral sixth rib fracture. 3. No additional traumatic findings of the chest, abdomen, or pelvis. Colonic diverticulosis SERVICE DATE: 09/19/16 EXAM TYPE: RAD - XRY-FOOT COMPLETE, R IMPRESSION: No acute fracture or dislocation. Mild degenerative changes with chronic changes at the second metatarsophalangeal joint. Assessment/Plan Assessment: In summary this is a 50-year-old gentleman with past medical history of alcohol dependence with history of previous alcohol withdrawal seizure on multiple occasions, ICU admission including intubation for alcohol withdrawal, cocaine abuser, prior episode of pancreatitis, peptic ulcer disease, no other significant past medical history, current cocaine abuser came in with chief complain off pain in the right side of the chest after a mechanical fall in hallucination and delirious secondary to alcohol withdrawal. Vitals on admission MAXIMUM TEMPERATURE of 98.9, he was tachycardic with average rate around 100-120, blood pressure was found to be systolic ranging from 104- 167, diastolic ranging from 60-90 mmHg, he was 99% saturating on room air. White count of 13.3, H/H of 16.1/47.6, platelet count of 107 (baseline around 100 in the year of 2016, last value noted to be 292 in 2014, most of the platelets in 2016 have been on the lower side). INR of 1.08. ABG pH of 7.47/PCO2 of 33, PO2 of 93, bicarbonate 23, carboxyhemoglobin of 1.4. Sodium of 129, potassium of 3.5, chloride of 95, bicarbonate 24, anion gap of 10 , creatinine of 2.3 (baseline 0.9), BUN of 37, glucose of 105, initial lactic acid was negative at 0.8. UA essentially negative. Urine toxicology positive for cocaine. Serum alcohol level less than 10. CT head did not show any acute intracranial pathology. CT chest showed right lateral fifth rib fracture, which was mildly displaced, nondisplaced right lateral sixth rib fracture as well, along with chronic osteoarthritis changes. No pneumothorax or lung contusion was noted. Foot x-ray did not show any acute fracture or dislocation. CT cervical spine did not demonstrate any acute fracture. He was admitted to the telemetry floor for alcohol withdrawal, very high CIWAS, warranting IV Ativan drip and close monitoring at the critical care unit. Problem list along with assessment and plan #1 alcohol withdrawal #2 acute kidney injury, likely prerenal. #3 rhabdomyolysis. #4 anion gap metabolic acidosis secondary to alcohol intoxication. #5 thrombocytopenia most likely secondary to alcohol, chronic in nature. #6 leukocytosis most likely reactive. #7 hyponatremia. #8 hypokalemia. #9 transaminitis secondary to alcoholism #10 mechanical fall with right fifth and sixth rib fracture. We will admit the patient to the critical care unit as the patient's Ativan needs an CIWA scores are very high therefore he will likely need Ativan drip. Continue to monitor the vitals every, titrate the Ativan drip as per CIWAS. Patient is also hypokalemic and hypomagnesemic likely secondary to alcoholism, we'll need to replete it. He has chronic thrombocytopenia, especially noted that the platelets have been low since 2016. He also had elevated creatinine kinase and creatinine elevated up to 2.3. He does look dehydrated, the worsening creatinine could also be secondary to rhabdo, he will need IV hydration, if the creatinine does not show improving trend, consider nephrology in a.m. Patient will eventually need social work consult Metabolic Hypokalemic/hypomagnesemic. Anion gap metabolic acidosis secondary to alcohol intoxication. * Continue IV hydration. * Continue to replete potassium/magnesium to keep potassium above 4 and magnesium above 2. * Continue to monitor electrolytes. * Infectious disease Reactive luecocytosis * Patient did not have any fever, vitals stable. * No evidence of any kind of infection. * Mildly elevated white count most likely reactive. * Continue to follow. Respiratory. * Patient saturating fine. * Saturating greater than 95% on room air, no apparent respiratory distress. * ABG showed anion gap metabolic acidosis. * CXR negative. * Swallow evalve once more alert. Haemoncolgy/oncology. Chronic thrombocytopenia 2/2 to alcoholism * Thrombocytopenia at 107, platelets have been low since last 1-1/2 years. * Continue to trend platelets. * We will do only Alps for DVT prophylaxis with hold off on heparin due to low platelets. * H&H stable, most likely hemoconcentrated due to dehydration. * Continue to trend. Alimentary * Patient NPO. Neurologically Toxic encephalopathy * Patient hallucinating, confused, not alert and oriented. * Continue IV Ativan. * No focal neurological deficits. * Altered mental status secondary to toxic encephalopathy 2/2 to alcohol intoxication. * Order #7 was called at the emergency department as the patient was extremely agitated. * One time of Haldol was given. * Haldol when necessary if extremely agitated, watch Qtc. DVT prophylaxis with Alps. Patient is nothing by mouth for now. Mild/moderate and severe pain pathway ordered, of note patient is allergic to tramadol, clarify in a.m. what kind of allergy. DVT px : ALPS . As Ranked By This Provider Problem List: 1. 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 Rib fractures Qualifiers Encounter type: initial encounter Rib fracture type: multiple ribs Fracture type: closed Laterality: right Qualified Code: S22.41XA - Multiple fractures of ribs, right side, initial encounter for closed fracture 3. Rhabdomyolysis Qualifiers Rhabdomyolysis type: traumatic Encounter type: initial encounter Qualified Code : T79.6XXA - Traumatic ischemia of muscle, initial encounter 4. Acute kidney injury 5. Alcohol dependency 6. Thrombocytopenia 7. Alcohol dependence with withdrawal 8. Altered mental status Core Measures/Miscellaneous Acute Coronary Syndrome ACS Diagnosis: No Cerebrovascular Accident CVA/TIA Diagnosis: No Congestive Heart Failure CHF Diagnosis: No VTE (View Protocol) VTE Risk Factors: Age > 40 [facility] prophylaxis d/t: No contraindications No VTE Pharm Prophylaxis d/t: No contraindications VTE Diagnosis: No VTE Type: NONE VTE Confirmed by (Test): NONE Sepsis (View Protocol) Severe Sepsis Present: No Septic Shock Septic Shock Present: No Miscellaneous Documentation Attending Case Discussed With: JUANITA GOMEZ MD Primary Care Physician: AMRITA HOPPER Patient sees these Specialists none Level of Patient Care: Critical Care (CRI) JUANITA GOMEZ 09/19/16 2130: Attending Review Statement Attending Statement Attending Statement: examined this patient, discuss w/resident/PA/CATALOGUE COMPILER, agreed w/resident/PA/CATALOGUE COMPILER, reviewed EMR data (avail), reviewed images, amended to note Attending Assessment/Plan: CC: fall 2 days back, right rib pain, feels "spacey" PMH: Alcohol dependence, alcohol related seizures, polysubstance abuse, history of intubation related to alcohol withdrawal, history of pancreatitis Patient came to ER with complaint of right rib pain after fall 2 days back from 20 feet ladder, inclined to a tree while at work. He was not taken to ER after that fall. He slipped off the ladder, denied any loss of consciousness, dizziness, palpitations, according to ER note. According to him he sustained injury to chest, he was also feeling foggy so he came to ER. His last drink was 4 days back. He drinks 2 pints of vodka and 10 beers every day. Not much details available as when we saw the patient he was already hallucinating and was inappropriate to respond. Patient admits cocaine use. Currently denies any pain. He is picking on things and picking in air. Vitals: Afebrile, tachycardic, RR 16, blood pressure O2 saturation acceptable range. On exam: Not oriented, hyperactive, delirious, hallucinating, inappropriate speech, cooperative, no acute distress, neck supple, JVD normal, no lymphadenopathy, mucosa dry, no focal neurological deficit, actively moves all extremities, follows some instructions, no dependent edema, macular papular rash on back and upper part of the chest CVS: S1-S2, RRR. RS: Clear to auscultate bilaterally. Abdomen: Soft, NT, ND, bowel sounds present. Peripheral pulses and perfusion normal. Labs: WBC 13.3, neutrophils 84%, platelets 107, potassium 3.7, bicarbonate 22, anion gap 22, BUN 47, creatinine 2.6, total bilirubin 1.7, AST 72, ALT 63, CK 7: 30, total protein 9.8, albumin 5.4, INR 1.08 , UA positive for ketones, U tox positive for cocaine AB.47/33/93/[address] head, CT chest, CT cervical spine, CT abdomen and pelvis, x-ray foot 1. No acute intracranial findings. 2. No acute fracture or malalignment of the cervical spine. Degenerative changes at C5-C6 and C6-C7. 3. Redemonstration of a right nasal cavity polyp. 4. Right lateral fifth rib fracture with mild overlying pleural thickening. No pneumothorax or lung contusion. 5. Nondisplaced right lateral sixth rib fracture. 6. No additional traumatic findings of the chest, abdomen, or pelvis. Colonic diverticulosis. 7. No acute fracture or dislocation. Mild degenerative changes with chronic changes at the second metatarsophalangeal joint. A and P 50-year-old male with extensive alcoholism and history of recurrent withdrawal including intubation for alcohol withdrawal alcohol related seizures, drinks 2-3 pins of vodka and 10 beers every day, last drink 4 days back, presented for chest pain after the fall. Patient is actively hallucinating and delirious. Otherwise examination is unremarkable, CT chest shows fifth and sixth right sided rib fracture. Patient has thrombocytopenia which appears to be chronic, severe dehydration with hemoconcentration and hypokalemia with anion gap metabolic acidosis and acute kidney injury probably secondary to volume contraction and rhabdomyolysis. His CPK is elevated. bilirubin mildly elevated probably related to alcoholism. INR is normal He also has mild respiratory alkalosis probably secondary to rapid shallow breathing with rib fracture. Patient received IV fluids and multiple Ativan doses in ER and was started on Ativan drip. Patient will require for ICU admission for severe hyperactive delirium + Hyperactive delirium secondary to alcohol withdrawal, delirium tremens + Rhabdomyolysis + Acute kidney injury + Dehydration + Anion gap metabolic acidosis + Chronic thrombocytopenia + Reactive leukocytosis + Mild respiratory alkalosis + Fifth and sixth right rib fractures + History of alcohol related seizures - Admit to ICU - Continue gentle hydration - Continue Ativan drip titrated RASS o to -1, intermittent Haldol if required - High dose thiamine - Replace electrolytes - Follow-up mg and Po4 -Serial EKG and troponin, given his cocaine use - Nothing by mouth - One-on-one sitter - Restrains if required - Repeat CPK, John, falls, CBC, BMP, LFT in a.m. - Check lactic acid - Tylenol level - DVT prophylaxis with Alps, change to heparin if platelet stable - Inform patient's family TTS 30 min
--- NOTE | 2016-09-19 20:19 | NUR ---
SANKET 29MM CATH APPLIED WITH METERED ACOSTA. NO OUTPUT AT THIS TIME. MEDICAETD WITH ADDITIONAL 2MG ATIVAN PER ORDER AND ATIVAN GTT INITIATED AT 4MG/HR (40ML/HR) PER ORDER BY RAJEEV US AND CHARO. SITTER PRESENT FOR SAFETY. PT CONTINUES TO RESPOND TO INTERNAL STIMULI WITH DISORGANIZED GARBLED SPEECH. EXTREMITIES RIGID AND TENSE, RESISTANT. WILL CONT TO MONITOR. SINUS TACH WITHOUT ECTOPY ON CM. BP 140/92
--- NOTE | 2016-09-19 20:25 | NUR ---
PT YELLING AND SHOUTING OUT, ACTING AGGRESSIVELY WITH SITTER AND ATTEMPTING TO AMBULATE OVER SIDE RAILS OF STRETCHER. UPON STAFF ARRIVAL TO ROOM, PT ATTEMPTING TO STRIKE STAFF, PUSH PAST AND DANGEROUSLY AGITATED. UNABLE TO DEESCALATE OR REDIRECT. DR MCCORD TO BEDSIDE WITH THIS RN, CHARGE NURSE, AND UNABLE TO REDIRECT SAFELY. ATTEMPTING TO FIGHT STAFF MORE. ORDER 7 CALLED AND PT MEDICATED WITH VERSED PER ORDER, THEN IM HALDOL WITH NO EFFICACY. PT REMAINS AGITATED, FIGHTING STAFF AND THREATENING. UNABLE TO OBTAIN BP AT THIS TIME DUE TO AGITATION AND RESTLESSNESS. ADDITIONAL DOSE OF VERSED ADMINISTERED PER ORDER AND REMAINS AGITATED. SINUS TACH 120'S AND PLACED ON SUPPLIMENTAL O2. CONTINUES TO FIGHT AND PULL AGAINST 4 POINT RESTRAINTS
--- NOTE | 2016-09-19 20:28 | NUR ---
PT GOING TO ROOM 109
--- NOTE | 2016-09-19 20:56 | NUR ---
ATIVAN GTT TITRATED TO 6MG/HR PER DR MCCORD ORDER. PT WITH UNLABORED EVEN RESPIRATIONS AND CHEST RISE AND FALL. NASAL TRUMPET INSERTED TO LEFT NARE FOR AIRWAY PATENCY. 16FR ACOSTA INSERTED, STERILE TECHNIQUE MAINTAINED. PT REMAINS IN RESTRAINTS. BP 167/76 AND NORMAL SINUS 96 AT THIS TIME WITHOUT ECTOPY. LESS RESISTANT TO RESTRAINTS.
--- NOTE | 2016-09-19 21:03 | NUR ---
REPEAT TROP DRAWN AND SENT. EKG IN PROGRES
--- NOTE | 2016-09-19 21:16 | NUR ---
REPORT GIVEN TO RECEIVING RN. DISTRIBUTION BOOKED. CHARGE NURSE NOTIFIED AND SECURITY PAGED
--- NOTE | 2016-09-19 21:31 | Admission Certification ---
Admission Certification Certification Statement - As attending physician, I certify that at the time of - admission, based on clinical presentation, severity of - symptoms, need for further diagnostic testing and - therapeutic interventions, and risk of adverse outcomes - without in-hospital treatment, in my clinical assessment, - this patient requires an acute hospital stay for a minimum - of two nights or longer. I have also considered psychsocial - factors such as support system, advanced age, financial - issues, cognitive issues, and failed out-patient treatments, - past re-admission history, safety of patient, and lack of - compliance as applicable. Specific rationale supporting this admission is: Severe delirium tremens
[2016-09-19 22:00] VITALS: BP 133/78
--- NOTE | 2016-09-19 23:33 | NUR ---
@2148, PT ADMITTED FROM ER VIA STRETCHER AND ACCOMPANIED BY NURSE,TECH AND SECURITY WITH CONTINUOUS MONITORING. TRANSPORT PT TO BED WITH NO ISSUES.PLACED ON CONT MONITORING.PT AWAKEN AND CONFUSED. CIWAF AT 18 AND RESTRAINTS APPLIED PER SECURITY DUE TO INCREASE AGITATION. ATIVAN GTT CONT VIA PIV SITE.LUNG SOUNDS DIMINISHED AND ON 2L O2 WITH SATS >95%.NPO.ACOSTA PATENT WITH GOOD UO.NO PRESSURE ULCERS NOTED.SKIN INTACT BUT RASH NOTED THROUGHOUT ADRIANNE TRUNK, FRONT AND BACKSIDE. SITTER AT BEDSIDE.SAFETY PRECAUTION CONT
[2016-09-20] VITALS (10 sets, daily range): BP systolic 109–139; BP diastolic 70–86
--- NOTE | 2016-09-20 00:30 | NUR ---
PATIENT RESPONSIVE TO PAINFUL STIMULI. NOT OPENING EYES NOR FOLLOWING COMMANDS. PUPILS EQUAL AND SLUGGISH TO REACTION. ATIVAN DRIP AT 6 MG/HR. DECREASED TO 5 MG/HR. NASAL O2 ON AT 4L. O2 SAT=98%.MONITOR SINUS RHYTHM AT 86 MANUAL SC=562/70.
[2016-09-20 03:00] LABS: ABSOLUTE BASOPHIL COUNT 0 /CUMM (0.0-0.2); ABSOLUTE EOSINOPHIL COUNT 0.1 /CUMM (0.0-0.7); ABSOLUTE GRANULOCYTE CT 5.9 /CUMM (1.4-6.5); ABSOLUTE LYMPH COUNT 1.4 /CUMM (1.2-3.4); BASOPHIL % 0.2 % (0.0-2.0); EOSINOPHIL % 0.9 % (0-5); GRANULOCYTE % 70.8 % (42.2-75.2); MEAN CORPUSCULAR HGB 31.2 PG (27.0-31.0); MEAN CORPUSCULAR HGB CONC 33.7 G/DL (33.0-37.0); MEAN CORPUSCULAR VOLUME 92.6 FL (80.0-94.0); MEAN PLATELET VOLUME 7.2 FL (7.4-10.4); PLATELET COUNT 72 /CUMM (130-400); RBC DISTRIBUTION WIDTH 13.6 % (11.5-14.5); WHITE BLOOD CELL COUNT 8.4 /CUMM (4.8-10.8)
[2016-09-20 03:25] LABS: HEMATOCRIT 35.3 % (42-52); RED BLOOD CELL CT 3.82 /CUMM (4.70-6.10)
--- NOTE | 2016-09-20 03:28 | NUR ---
PATIENT RESPONDS TO TACTILE STIMULI. BEGINNING TO SPEAK BUT DIFFICULT TO UNDERSTAND.PUPILS EQUAL AND REACTIVE TO LIGHT.ATIVAN DRIP CONTINUES AT 5 MG/HR.SOFT WRIST RESTRAINTS X4 IN PLACE. PT WILL CLENCH FISTS WHEN DISTURBED.MOVES ALL EXTREMITIES.NASAL TRUMPET REMAINS IN PLACE. NASAL O2 ON AT 4L.HKE=249%.DIFFUSE RED RASH REMAINS OVER TRUNK OF BODY. BATH GIVEN.TURNED AND REPOSITIONED TO L SIDE.
--- NOTE | 2016-09-20 03:50 | NUR ---
SEEN BY PATIENT REMAINS SEDATED AND RESPONSIVE ONLY TO TACTILE STIMULI. ATIVAN DECREASED TO 4 MG/HR.
--- NOTE | 2016-09-20 08:17 | Cons- CRCU ---
CYNTHIA RODGERS,[facility] 09/20/16 0816: General Information and HPI Consulting Request Date of Consult: 09/20/16 Requested By: Dr. Dash Reason for Consult: Alcohol withdrawal that required Ativan drip Source of Information: family, old records Exam Limitations: unable to give history, confusion, intoxication History of Present Illness: 50/M with PMH of Multiple admissions for alcohol withdrawl(complicated by seizure and once required intubation ICU), pancreatitis, and PUD who was presented to the hospital yesterday with a chief complaint of right side chest pain, confusion, delirium, agitation, tremulous and hallucination. Patient was complaining of right chest pain during the last week. Patient was confused on admission, multiple stories was provided by family and patient, it's not clear if he fell from a ladder or he sustained chest trauma during a democrat with friends. Patient was in severe pain, Instead of seeking medical attention he decided to self medicate by drinking alcohol. His last drink was 4 days ago. Usually he drinks 2 pints of vodka and 10 beers every day. Patient also admits cocaine use. Allergies/Medications Allergies: Coded Allergies: Penicillins (ITCHINESS 01/05/16) tramadol (DOESN'T REMEMBER 01/05/16) Home Med List: No Known Home Medications Review of Systems Comments Patient is confused and altered, review of system cannot be obtained. Past History Travel History Traveled to [place] past 21 day No Medical History Neurological: seizure, FROM ETOH DETOX EENT: NONE Cardiovascular: NONE Respiratory: NONE, LUNG TUMOR (BENIGN) Gastrointestinal: pancreatitis, peptic ulcer disease Hepatic: NONE Renal: NONE Musculoskeletal: NONE Psychiatric: alcohol dependence, substance abuse Endocrine: NONE Blood Disorders: NONE Cancer(s): NONE MIXING OPERATOR/Reproductive: NONE Surgical History Surgical History: VARICOSE VEIN TUMOR REMOVED CHEST WALL Family History Relations & Conditions If Any: FATHER (Hypertension, heart disease, diabetes). Alcohol abuse and dependence Grandmother (Throat cancer). Alcohol abuse and dependence Psychosocial History Where Do You Live? Home Who Do You Live With? self Services at Home: None Primary Language: Tajik Smoking Status: Never Smoked ETOH Use: heavy use Illicit Drug Use: cocaine Functional Ability ADLs Independent: dressing, eating, toileting, bathing. Ambulation: independent IADLs Independent: shopping, housework, finances, food prep, telephone, transportation , medication admin. Exam & Diagnostic Data Last 24 Hrs of Vital Signs/I&O Vital Signs Date Time Temp Pulse Resp B/P B/P Pulse O2 O2 Flow FiO2 Mean Ox Delivery Rate 09/20 0800 89 24 109/75 09/20 0800 96 Nasal 4.0L Cannula 09/20 0600 83 18 109/79 09/20 0400 97.6 75 20 110/70 09/20 0400 99 Nasal 4.0L Cannula 09/20 0200 99.1 86 16 120/70 09/20 0000 99.1 86 16 120/70 09/20 0000 99.1 86 16 120/70 98 Nasal 4.0L Cannula 09/20 0000 95 Nasal 4.0L Cannula 09/19 2255 98 Nasal 2.0L Cannula 09/19 2200 97.9 93 20 133/78 09/19 2100 96 16 134/74 99 Nasal 2.0L Cannula 09/19 2051 98.1 100 16 167/76 99 Nasal 2.0L Cannula 09/19 2017 106 140/92 09/19 1933 104 16 148/67 09/19 1931 98.0 105 16 148/67 97 Room Air 09/19 1916 98.9 90 98 124/82 09/19 1914 98.9 90 16 124/82 99 Room Air 09/19 1829 94 16 154/80 09/19 1828 94 16 154/80 96 Room Air 09/19 1735 97.8 97 18 140/93 96 Room Air 09/19 1733 97.8 97 18 140/93 09/19 1648 98.4 96 16 112/84 97 Room Air 09/19 1513 112 16 104/60 09/19 1513 96 Room Air 09/19 1512 112 16 104/60 96 Room Air 09/19 1430 95.7 112 18 105/80 96 Room Air Intake & Output 09/20 1600 0615 0800 09/20 0000 Intake Total 935 360 Output Total 560 240 Balance 375 120 Intake, IV 935 360 Output, Urine 560 240 Patient 79.379 kg Weight Physical Exam General Appearance: anxious, alert and oriented but inappropriate speech, mildly condused and agitated Head: atraumatic, normal appearance Eyes: Bilateral: normal appearance, PERRL. Respiratory: normal breath sounds, chest non-tender, no respiratory distress, lungs clear Cardiovascular: regular rate/rhythm Gastrointestinal: normal bowel sounds, soft, non-tender Extremities: normal inspection, no edema Neurologic/Psych: alert, oriented x 3 Last 48 Hrs of Labs/Thomas: Laboratory Tests 09/20/16 0300: Lactic Acid Cancelled, Total Bilirubin Cancelled, Direct Bilirubin Cancelled, AST Cancelled, ALT Cancelled, Alkaline Phosphatase Cancelled, Total Protein Cancelled, Albumin Cancelled 09/20/16 0230: Anion Gap 8, Estimated GFR > 60, Glucose 106 H, Lactic Acid 0.9, Calcium 7.8 L , Phosphorus 3.5, Magnesium 2.3, Total Bilirubin 1.3, Direct Bilirubin 0.2, AST 61 H, ALT 40, Alkaline Phosphatase 74, Creatine Kinase 925 H, Troponin I < 0.01, Total Protein 6.2 L, Albumin 3.3 L, CBC w Diff NO MAN DIFF REQ, RBC 3.82 L, MCV 92.6, MCH 31.2 H, RDW 13.6, MPV 7.2 L, Gran % 70.8, Lymphocytes % 16.7 L, Monocytes % 11.4 H, Eosinophils % 0.9, Basophils % 0.2, Absolute Granulocytes 5.9, Absolute Lymphocytes 1.4, Absolute Monocytes 1.0 H, Absolute Eosinophils 0.1, Absolute Basophils 0, PUBS MCHC 33.7 09/19/16 2102: Troponin I < 0.01 09/19/16 1948: Anion Gap 10, Estimated GFR 50 L, BUN/Creatinine Ratio 24.7, Glucose 105 H, Calcium 7.9 L, Total Bilirubin 1.3, AST 54, ALT 54, Alkaline Phosphatase 78, Total Protein 7.3, Albumin 4.0, Globulin 3.3, Albumin/Globulin Ratio 1.2 09/19/16 1836: Urine Opiates Screen < 100.00, Methadone Screen < 40, Barbiturate Screen < 60, Ur Phencyclidine Scrn < 6.00, Amphetamines Screen < 100, U Benzodiazepines Scrn < 85, Urine Cocaine Screen 903 H, Urine Cannabis Screen < 5.00, Urine Color YEL , Urine Clarity HAZY H, Urine pH 5.5, Ur Specific [place] >= 1.030, Urine Protein 100 H, Urine Ketones 15 H, Urine Nitrite NEG, Urine Bilirubin NEG@ICTO , Urine Urobilinogen 1.0, Ur Leukocyte Esterase NEG, Ur Microscopic SEDIMENT EXAMINED, Urine RBC RARE, Urine WBC RARE, Ur Epithelial Cells FEW, Urine Bacteria MANY H, Hyaline Casts > 75 H, Urine Hemoglobin SMALL H, Urine Glucose NEG 09/19/16 1630: pH 7.47 H, pCO2 33 L, pO2 93, HCO3 23, ABG O2 Sat (Measured) 97.0, Carboxyhemoglobin 1.4 L, O2 Concentration % RA, O2 Delivery Method RA, Phlebotomy Draw Site LEFT RADIAL 09/19/16 1505: Anion Gap 22 H, Estimated GFR 26 L, BUN/Creatinine Ratio 18.1, Glucose 150 H, Calcium 9.9, Phosphorus 5.8 H, Magnesium 1.8, Total Bilirubin 1.7 H, AST 72 H , ALT 63, Alkaline Phosphatase 106, Creatine Kinase 730 H, Troponin I < 0.01, Total Protein 9.8 H, Albumin 5.4 H, Globulin 4.4 H, Albumin/Globulin Ratio 1.2, Amylase 75, Lipase 146, PT 11.3, INR 1.08, APTT 36, CBC w Diff MAN DIFF ORDERED, RBC 5.20, MCV 91.6, MCH 30.9, RDW 13.6, MPV 7.7, Gran % 84.5 H, Lymphocytes % 7.2 L, Monocytes % 8.3, Eosinophils % 0, Basophils % 0 L, Absolute Granulocytes 11.2 H, Absolute Lymphocytes 1.0 L, Absolute Monocytes 1.1 H, Absolute Eosinophils 0, Absolute Basophils 0, Platelet Estimate DECREASED, Normocytic RBCs VERIFIED, Normochromic RBCs VERIFIED, PUBS MCHC 33.7, Acetaminophen < 10.0 L, Serum Alcohol < 10.0 09/19/16 1501: Amylase Cancelled, Lipase Cancelled Assessment/Plan Impression/Plan: This is 50-year-old male with extensive past medical history of alcohol abuse that lead to multiple admission with multiple complications(seizures and intubation). drinks 2-3 pins of vodka and 10 beers every day, last drink was 4 days ago. Patient present with chest pain, CT chest shows fifth and sixth right sided rib fracture. On admission patient was hallucinating and delirious. on lab thrombocytopenia which appears to be chronic, severe dehydration with hemoconcentration and hypokalemia with anion gap metabolic acidosis and acute kidney injury probably secondary to volume contraction and rhabdomyolysis. #Hyperactive delirium secondary to alcohol withdrawal. * Patient on Ativan drip, will taper as possible. * Given the extensive withdrawal history we will monitoring ICU * Patient is confused and agitated so we'll continue bilateral UE soft restrains. * Patient received 500 mg of IV thiamine, will continue same dose 3 times a day for 2 days. Follow up by 250 mg IV or IM daily for 5 days.(omer) #Acute kidney injury/Rhabdomyolysis/Dehydration * Most likely his acute kidney injury secondary to dehydration and rhabdomyolysis * Continue IV hydration. * BEP daily #Chronic thrombocytopenia * Chronic since year and a half * CBC daily * Hold off anticoagulants #Leukocytosis * Most likely reactive * CBC daily * Watch for signs or symptoms suggestive of infection * Chest x-ray tomorrow #Fifth and sixth right rib fractures * Pain management as necessary DVT PPx: ALPS only Diet: Heart healthy Full code Consult Acknowledgment - Thank you for your consult request. ALEJANDRA RODGERS,[facility] 09/20/16 1341: Assessment/Plan Other Findings/Comments: Seen and examined independently NOte as above SIg etoh abuse now with dt s/p fall Rib fractures history of withdrawal seizures Prob sig chronic liver disease with thrombocytopenia REsolving LEBRON with rhabdo Leucocytosis REC IV ativan and reduce the drip Check mag and ekg if qtc ok can give low dose haldol prn aswell Other plan as above Cxr in a day Low threshold for intubartion IVf Pt is critically ill Consult Acknowledgment - Thank you for your consult request.
--- NOTE | 2016-09-20 20:21 | NUR ---
PATIENT RELEASED FROM UPPER WRIST RESTRAINTS TO EAT DINNER. ATE PIZZA,DRANK JUICE. CO OPERATIVE INITAIALLY AND FELL OFF TO SLEEP AFTER EATING. HOWEVER AWOKE LOOKING FOR HIS CLOTHES AND CELL PHONE.CELL PHONE GIVEN.STATES HE WANTS TO CALL HIS HOST.MONITOR SINUS TACHYCARDIA AT RATE OF 120. NR=[id number]. ATIVAN DRIP INCREASED TO 6 MG/HR FROM 5 MG/HR.
--- NOTE | 2016-09-20 23:46 | NUR ---
PATIENT BECAME AGRESSIVE.MAKING FISTS WITH BOTH HANDS AND TELLING ME TO RELEASE RESTRAINTS,ATTEMPTING OOB,PULLING ON ACOSTA CATHETER.ATIVAN DRIP INCREASED TO 7 MG/HR.MONITOR SINUS RHYTHM TO SINUS TACHYCARDIA.
[2016-09-21] VITALS (7 sets, daily range): BP systolic 100–125; BP diastolic 60–84
--- NOTE | 2016-09-21 02:57 | NUR ---
PATIENT ATE BOX LUNCH.AWARE TODAY IS SEPTEMBER. SOFT RESTRAINTS REPLACED AFTER LUNCH. NASAL O2 REMAINS AT 4L. MONITOR SINUS RHYTHM.
[2016-09-21 05:35] LABS: ABSOLUTE BASOPHIL COUNT 0 /CUMM (0.0-0.2); ABSOLUTE EOSINOPHIL COUNT 0 /CUMM (0.0-0.7); ABSOLUTE GRANULOCYTE CT 6.9 /CUMM (1.4-6.5); ABSOLUTE LYMPH COUNT 0.8 /CUMM (1.2-3.4); ABSOLUTE MONOCYTE COUNT 1.1 /CUMM (0.10-0.60); BASOPHIL % 0.2 % (0.0-2.0); EOSINOPHIL % 0.4 % (0-5); GRANULOCYTE % 77.7 % (42.2-75.2); MEAN CORPUSCULAR HGB 31.3 PG (27.0-31.0); MEAN CORPUSCULAR HGB CONC 33.4 G/DL (33.0-37.0); MEAN CORPUSCULAR VOLUME 93.7 FL (80.0-94.0); PLATELET COUNT 92 /CUMM (130-400); RBC DISTRIBUTION WIDTH 13.5 % (11.5-14.5); RED BLOOD CELL CT 3.42 /CUMM (4.70-6.10); WHITE BLOOD CELL COUNT 8.9 /CUMM (4.8-10.8)
--- NOTE | 2016-09-21 06:30 | NUR ---
PATIENT MORE CO OPERATIVE. DRINKING AND EATING WELL. SOFT WRISTS RELEASED TO FACILITATE EATING. BLE RESTRAINTS REMOVED
--- NOTE | 2016-09-21 07:31 | PN- Resident CRCU ---
CYNTHIA RODGERS,[facility] 09/21/16 0731: Subjective HPI/CRCU Issues: Afebrile, hemodynamically stable, mildly tachycardic, and saturating well on room air. This morning patient is anxious, agitated, and hallucinating. Patient is on Ativan drip 7 mg/h. CIWA score 2-8 since yesterday. 24 Hour Events: Patient is agitated and trying to remove Rodríguez. Objective Vital Signs & I&O Last 8 Hrs of Vitals and I&O: Vital Signs Date Time Temp Pulse Resp B/P B/P Pulse O2 O2 Flow FiO2 Mean Ox Delivery Rate 09/21 0600 91 20 125/82 09/21 0400 98.9 94 24 100/60 09/21 0200 110 20 121/84 09/21 0000 98.7 101 20 120/76 09/21 0000 98.7 101 20 100/60 96 Nasal 4.0L Cannula 09/21 0000 96 Nasal 4.0L Cannula 09/20 2200 116 20 114/77 09/20 2000 98.9 116 18 110/80 09/20 2000 93 Nasal 4.0L Cannula 09/20 1600 99.5 110 24 130/82 09/20 1600 98 Nasal 4.0L Cannula 09/20 1600 99.5 115 24 130/82 97 Nasal 4.0L Cannula 09/20 1352 99.3 115 20 139/86 09/20 1200 99.3 110 20 130/83 09/20 1200 98 Nasal 4.0L Cannula Intake & Output 09/21 1600 09/21 0800 09/21 0000 Intake Total 898 1487 Output Total 960 875 Balance -62 612 Intake, IV 538 1387 Intake, Oral 360 100 Output, Urine 960 875 Patient 78.925 kg Weight Intake & Output 09/21 1600 Intake Total Output Total Balance Patient 78.925 kg Weight Exam General Appearance: alert, awake, anxious, moderate distress Head: atraumatic, normal appearance Respiratory: normal breath sounds, chest non-tender, no respiratory distress Cardiovascular: regular rate/rhythm Gastrointestinal: normal bowel sounds, soft, non-tender Extremities: normal inspection, no edema Current Medications: Current Medications Sig/Nidhi Start time Last Medication Dose Route Stop Time Status Admin Acetaminophen 1,000 MG Q6P PRN 09/19 2014 AC IV Cyanocobalamin/ 1 BAG DAILY 09/20 1000 AC 09/20 Thiamine/Pyridoxine IV 09/22 1759 1108 Dextrose/Water 1,000 ML Haloperidol 1 MG Q4P PRN 09/20 1600 AC 09/21 IM 0926 Hydromorphone HCl 0.2 MG Q6P PRN 09/19 2030 AC IV Ibuprofen 600 MG Q6P PRN 09/19 2014 AC 09/21 PO 0907 Lorazepam 1 MG Q2P PRN 09/20 1415 AC IV Lorazepam 100 MG Q20H 09/20 0800 AC 09/21 Sodium Chloride 1,000 ML IV 0131 Lorazepam 2 MG Q2P PRN 09/19 2014 AC 09/21 PO 0906 Lorazepam 1 MG Q2P PRN 09/19 2015 AC PO Potassium Chloride 40 MEQ ONCE ONE 09/21 0745 DC 09/21 PO 09/21 0746 0901 Potassium Chloride 40 MEQ ONCE ONE 09/20 2045 CAN PO 09/20 2046 Potassium Chloride 10 MEQ Q1H 09/20 1945 DC 09/20 IV 09/20 2146 2354 Potassium Chloride 10 MEQ Q1H 09/20 0930 DC 09/20 IV 09/20 1131 1221 Potassium Phosphate 15 mMol ONE ONE 09/21 0745 AC 09/21 Dextrose/Water 250 ML IV 09/21 1148 0906 Thiamine HCl 500 MG TID 09/20 2200 AC 09/21 Sodium Chloride 100 ML IV 09/22 1031 0906 Thiamine HCl 500 MG ONCE ONE 09/20 1145 DC 09/20 Sodium Chloride 100 ML IV 09/20 1215 1227 Impression/Plan Impression/Problem List Impression: This is 50-year-old male with extensive past medical history of alcohol abuse that lead to multiple admission with multiple complications(seizures and intubation). drinks 2-3 pins of vodka and 10 beers every day, last drink was 5 days ago. Patient present with chest pain, CT chest shows fifth and sixth right sided rib fracture. on lab thrombocytopenia which appears to be chronic, severe dehydration with hemoconcentration and hypokalemia with anion gap metabolic acidosis and acute kidney injury probably secondary to volume contraction and rhabdomyolysis. Patient is still altered, confused, agitated, has a short-term problem, and shows a confabulation(gives different stories to explain his fractures every day). #Hyperactive delirium secondary to alcohol withdrawal/ DT/ possible wernicke * Patient on 7 mg/h Ativan drip, will taper as possible. Use Ativan when necessary IV * Patient still showing withdrawal symptom, we will continue ICU monitoring * Patient is agitated, hallucinating, and dangerous to health care provider. We will use a 4-point soft restraints, EKG daily, Haldol when necessary * We will continue 500 mg of IV thiamine 3 times a day for 2 days. Follow up by 250 mg IV or IM daily for 5 days.(omer) * Patient has a long history of substance abuse, we will consult psych. #Acute kidney injury/Rhabdomyolysis/Dehydration(resolved) * Most likely his acute kidney injury secondary to dehydration and rhabdomyolysis * Continue IV hydration, until he tolerates oral intake. * BEP daily #Chronic thrombocytopenia * Chronic since year and a half * CBC daily * Hold off anticoagulants #Leukocytosis(resolved) * X-ray this morning showed obesity which may represent atelectasis or pneumonia * Afebrile and Leukocytosis resolved * Watch off antibiotic, we'll start Unasyn with any suspicion of pneumonia. * CBC daily #Fifth and sixth right rib fractures * Pain management as necessary #Hypokalemia * Potassium 3.4 this a.m. up from 3.1 yesterday after he received 6 rounds of 10 mEq potassium IV * We will replete potassium as necessary DVT PPx: ALPS only Diet: Heart healthy Full code Problem List: 1. Alcohol abuse Pain Ratin Tomorrow's Labs & Rationales: CBC and ICU bundle Plan DVT/Prophylaxis: mechanical, pharmacological ALEJANDRA RODGERS,[facility] 09/21/16 1314: Attending MD Review Statement Attending Sign Off Attending Cosign Statement: I have: examined this patient, reviewed [facility] EMR data, personally reviewd images, discussd w/resident/PA/DEAN OF GRADUATE [employer]UDIES, discussed mgmt plan w/karolina, discussed mgmt plan w/CM, discussed mgmt plan w/pt, agreed w/resident/PA/DEAN OF [employer]ADU[employer]UD[employer], amended to note. Other Findings: NOte as above SIg etoh abuse now with dt s/p fall Rib fractures cXR Sugg of atx vs pna history of withdrawal seizures Prob sig chronic liver disease with thrombocytopenia REsolved LEBRON with rhabdo Leucocytosis REC IV ativan and reduce the drip if neda Check mag and ekg if qtc ok can give low dose haldol prn aswell Other plan as above IF he has worsening wbc or becomes hypoxic start iv unasyn if not hold abx Low threshold for intubartion IVf cont all meds replace potassium Pt is critically ill
--- NOTE | 2016-09-21 07:50 | RADIOLOGY REPORT ---
EXAMINATION: XR PORTABLE CHEST CLINICAL INFORMATION: Confusion with seizure. Evaluate for aspiration/pneumonia. COMPARISON: Chest CT 09/19/2016 TECHNIQUE: Portable frontal view of the chest was obtained. FINDINGS: Cardiac leads overlie the chest. There is a patchy retrocardiac opacity. No pleural effusion or pneumothorax. The cardiomediastinal silhouette is within normal limits. No acute osseous abnormality. IMPRESSION: Retrocardiac opacity which could represent atelectasis or pneumonia. Aspiration is a consideration.
--- NOTE | 2016-09-21 11:58 | NUR ---
PT BECAME INCREASINGLY AGITATED AND AGRESSIVE TOWARDS STAFF THIS AM REQUIRING CODE 10, APPLICATION OF RESTRAINTS HE WAS PULLING AT LINES, AND AN INCREASE OF HIS IV ATIVAN TO 15MG PER HOUR. DR. ROBERTS WAS IN AND ATIVAN WILL NOT BE INCREASED BEYOND 15MG, EKG WILL BE DONE, HALDOL WILL BE ORDERED ( GIVEN IM), AND IV ATIVAN DRIP WILL BE DECREASED WITH IV BOLUSES GIVEN PRN. KARLA HAS BEEN D/C/D. THE PT IS EATING AND DRINKING WELL.
--- NOTE | 2016-09-21 14:32 | Cons- Psychiatry ---
Psychiatric Consult Date of Consult: 09/21/16 Reason for Consult: Suspicious fall, confabulation, ETOH Ordered by Dr. Queenie Dash attending History of Present Illness: Identifying info: 50-year-old male presents to [facility] emergency department with chief complaint of rib pain status post fall. He has a history of alcohol use disorder. Subsequently admitted to the critical care unit in alcohol withdrawal. CC: "Actually today I'm good" HPI: Patient reports he came to the hospital because he had been in a [place] jumping with some friends when an overweight friend accidentally knocked him over and landed on his chest. He feels he broke some ribs at that point and tried to ignore it for a few days but eventually came to the hospital. Patient is poor historian, history obtained from medical record. Per H&P: "obtained from his son Sanjuanita, Armand Rene, whom we contacted at .Apparently the patient has been drinking for last 20-30 years on and off. He has a period of continuos 6 months of drinking, wakes up and has a drink every day, on an average he would drink 20 nips of vodka every day. There might be a period of 3 months where he would be sober, however he would revert back to drinking again. Mr. Acuna went to a libertarian 1 week ago, where he was on top of jumpy bounce and somebody fell on top of him, and after that he was having severe pain in his right ribs. Apparently he thought that he would have broken his ribs however never saw Dr. He reverted to drinking because of extreme pain. He has not been eating and drinking well since last 2-3 days again secondary to the pain. As per the son he looks really skinny must have lost 10-15 pounds in the last 2-3 days. He sees him every day and he was trying to bring him some water and Gatorade, however he was hallucinating and shaking, he has not taken any drink in last 3-4 days.His last drink have been 3 to 4 [employer],however he wasn't completely sure about it.Mr. Acuna has had previous multiple admissions, on an average has alcohol related seizures once every year for past 8-10 years. He is also been previously admitted in ICU for Ativan drip, has been intubated secondary to alcohol intoxication. He was in IOP many years ago however in last 10-20 years he has never been in any IOP program as well. He also snorts and sniffs cocaine, uses crack cocaine on and off." PMH: Please see the H&P for a complete listing Pancreatitis, peptic ulcer disease Past Psych History: None previously Family Psych History: Unobtained Substance History Alcohol use disorder Cocaine use disorder Sedative hypnotic use disorder -Treatment Multiple inpatient detoxes at [facility] and outpaite programs including [facility], [facility], [facility], [facility], [facility], [facility] outpatient Family Substance History: Father & grandmother - ETOH Social: . Lives alone. Abuse/Trauma: Did not obtain Current Home Psychotropic Medications: None Current Hospital Psychotropic Medications: Med Haloperidol 1 MG IM Q4P PRN 09/20/161599 Lorazepam 2 MG PO Q2P PRN 09/19/162014 Lorazepam 1 MG PO Q2P PRN 09/19/162014 Lorazepam 1 MG IV Q2P PRN 09/20/16 1415 Lorazepam 100 MG IV Q6H 09/21/16 1400 Sodium Chloride 1,000 ML Allergies: Coded Allergies: Penicillins (ITCHINESS 01/05/16) tramadol (DOESN'T REMEMBER 01/05/16) Current Medications: Current Medications Sig/Nidhi Start time Last Medication Dose Route Stop Time Status Admin Acetaminophen 1,000 MG Q6P PRN 09/19 2014 AC IV Cyanocobalamin/ 1 BAG DAILY 09/20 1000 AC 09/21 Thiamine/Pyridoxine IV 09/22 1759 1129 Dextrose/Water 1,000 ML Haloperidol 1 MG Q4P PRN 09/20 1600 AC 09/21 IM 1523 Hydromorphone HCl 0.2 MG Q6P PRN 09/19 2030 AC IV Ibuprofen 600 MG Q6P PRN 09/19 2014 AC 09/21 PO 1610 Lorazepam 100 MG Q6H 09/21 1400 AC Sodium Chloride 1,000 ML IV Lorazepam 1 MG Q2P PRN 09/20 1415 AC IV Lorazepam 100 MG Q20H 09/20 0800 DC 09/21 Sodium Chloride 1,000 ML IV 09/21 1359 0131 Lorazepam 2 MG Q2P PRN 09/19 2014 AC 09/21 PO 1609 Lorazepam 1 MG Q2P PRN 09/19 2014 AC PO Potassium Chloride 40 MEQ ONCE ONE 09/21 0745 DC 09/21 PO 09/21 0746 0901 Potassium Chloride 40 MEQ ONCE ONE 09/20 204 CAN PO 09/20 2045 Potassium Chloride 10 MEQ Q1H 09/20 194 DC 09/20 IV 09/20 2146 2354 Potassium Phosphate 15 mMol ONE ONE 09/21 0745 DC 09/21 Dextrose/Water 250 ML IV 09/21 1148 0906 Thiamine HCl 500 MG TID 09/20 2200 AC 09/21 Sodium Chloride 100 ML IV 09/22 1031 1525 Past History Past Medical History Neurological: seizure, FROM ETOH DETOX EENT: NONE Cardiovascular: NONE Respiratory: NONE, LUNG TUMOR (BENIGN) Gastrointestinal: pancreatitis, peptic ulcer disease Hepatic: NONE Renal: NONE Musculoskeletal: NONE Psychiatric: alcohol dependence, substance abuse Endocrine: NONE Blood Disorders: NONE Cancer(s): NONE TUCKPOINTER/Reproductive: NONE Past Surgical History Surgical History: VARICOSE VEIN TUMOR REMOVED CHEST WALL Psychosocial History Strengths/Capabilities: Currently hospitalized Physical Limitations (Interventions): Chronic pattern of relapse and abuse Psychiatric Treatment History Psych Treatment Psychiatric Treatment No Diagnosis: Alcohol use disorder Cocaine use disorder Sedative hypnotic use disorder Risk Factors: chronic/serious med cond., SA/[facility] hospitalized, substance abuse, lives alone, male Substance Use/Abuse History Drug Use/Abuse Substances Used/Abused Yes (as above) Substance Abuse Treatment Substance Abuse Treatment Past Substance Abuse [place] Yes (as above) Assessment/Plan Mental Status Mental Status Exam: Presentation/Appearance: Cooperative with evaluation to best of his ability. [facility]. Orientation: Oriented to self and place, year as "1916," elsa "October" Sensorium: Somnolent Eye contact: Appropriate Affect: Somewhat blunted Mood: Denies any mood disturbance Depression: Denies Anxiety: Denies Thought Content: - Denies SI/HI, AH/VH, PI. States and also believes they will not kill themselves. - Denies Hopeless/Helpless Thoughts Thought Process: Mildly confused Associations: Somewhat loose Speech: Soft somewhat slurred Judgment: Poor Insight: Poor Cognition: Memory: Impaired Attention/Concentration: Impaired Fund of Knowledge: Did not assess Abstractions: Did not assess MMSE: Did not assess Lab Results: Laboratory Tests 09/21/16 0430: Anion Gap 7, Estimated GFR > 60, Glucose 102 H, Calcium 8.1 L, Phosphorus 2.4 L, Magnesium 2.0, Total Bilirubin 0.9, AST 50, ALT 41, Albumin 3.1 L, CBC w Diff NO MAN DIFF REQ, RBC 3.42 L, MCV 93.7, MCH 31.3 H, RDW 13.5, MPV 7.0 L, Gran % 77.7 H, Lymphocytes % 9.1 L, Monocytes % 12.6 H, Eosinophils % 0.4, Basophils % 0.2, Absolute Granulocytes 6.9 H, Absolute Lymphocytes 0.8 L, Absolute Monocytes 1.1 H, Absolute Eosinophils 0, Absolute Basophils 0, PUBS MCHC 33.4 09/20/16 1745: Anion Gap 8, Estimated GFR > 60, BUN/Creatinine Ratio 16.7 09/20/16 0300: Lactic Acid Cancelled, Total Bilirubin Cancelled, Direct Bilirubin Cancelled, AST Cancelled, ALT Cancelled, Alkaline Phosphatase Cancelled, Total Protein Cancelled, Albumin Cancelled 09/20/16 0230: Anion Gap 8, Estimated GFR > 60, Glucose 106 H, Lactic Acid 0.9, Calcium 7.8 L , Phosphorus 3.5, Magnesium 2.3, Total Bilirubin 1.3, Direct Bilirubin 0.2, AST 61 H, ALT 40, Alkaline Phosphatase 74, Creatine Kinase 925 H, Troponin I < 0.01, Total Protein 6.2 L, Albumin 3.3 L, CBC w Diff NO MAN DIFF REQ, RBC 3.82 L, MCV 92.6, MCH 31.2 H, RDW 13.6, MPV 7.2 L, Gran % 70.8, Lymphocytes % 16.7 L, Monocytes % 11.4 H, Eosinophils % 0.9, Basophils % 0.2, Absolute Granulocytes 5.9, Absolute Lymphocytes 1.4, Absolute Monocytes 1.0 H, Absolute Eosinophils 0.1, Absolute Basophils 0, PUBS MCHC 33.7 09/19/16 2102: Troponin I < 0.01 09/19/16 1948: Anion Gap 10, Estimated GFR 50 L, BUN/Creatinine Ratio 24.7, Glucose 105 H, Calcium 7.9 L, Total Bilirubin 1.3, AST 54, ALT 54, Alkaline Phosphatase 78, Total Protein 7.3, Albumin 4.0, Globulin 3.3, Albumin/Globulin Ratio 1.2 09/19/16 1836: Urine Opiates Screen < 100.00, Methadone Screen < 40, Barbiturate Screen < 60, Ur Phencyclidine Scrn < 6.00, Amphetamines Screen < 100, U Benzodiazepines Scrn < 85, Urine Cocaine Screen 903 H, Urine Cannabis Screen < 5.00, Urine Color YEL , Urine Clarity HAZY H, Urine pH 5.5, Ur Specific [place] >= 1.030, Urine Protein 100 H, Urine Ketones 15 H, Urine Nitrite NEG, Urine Bilirubin NEG@ICTO , Urine Urobilinogen 1.0, Ur Leukocyte Esterase NEG, Ur Microscopic SEDIMENT EXAMINED, Urine RBC RARE, Urine WBC RARE, Ur Epithelial Cells FEW, Urine Bacteria MANY H, Hyaline Casts > 75 H, Urine Hemoglobin SMALL H, Urine Glucose NEG 09/19/16 1630: pH 7.47 H, pCO2 33 L, pO2 93, HCO3 23, ABG O2 Sat (Measured) 97.0, Carboxyhemoglobin 1.4 L, O2 Concentration % RA, O2 Delivery Method RA, Phlebotomy Draw Site LEFT RADIAL 09/19/16 1505: Anion Gap 22 H, Estimated GFR 26 L, BUN/Creatinine Ratio 18.1, Glucose 150 H, Calcium 9.9, Phosphorus 5.8 H, Magnesium 1.8, Total Bilirubin 1.7 H, AST 72 H , ALT 63, Alkaline Phosphatase 106, Creatine Kinase 730 H, Troponin I < 0.01, Total Protein 9.8 H, Albumin 5.4 H, Globulin 4.4 H, Albumin/Globulin Ratio 1.2, Amylase 75, Lipase 146, PT 11.3, INR 1.08, APTT 36, CBC w Diff MAN DIFF ORDERED, RBC 5.20, MCV 91.6, MCH 30.9, RDW 13.6, MPV 7.7, Gran % 84.5 H, Lymphocytes % 7.2 L, Monocytes % 8.3, Eosinophils % 0, Basophils % 0 L, Absolute Granulocytes 11.2 H, Absolute Lymphocytes 1.0 L, Absolute Monocytes 1.1 H, Absolute Eosinophils 0, Absolute Basophils 0, Platelet Estimate DECREASED, Normocytic RBCs VERIFIED, Normochromic RBCs VERIFIED, PUBS MCHC 33.7, Acetaminophen < 10.0 L, Serum Alcohol < 10.0 09/19/16 1501: Amylase Cancelled, Lipase Cancelled Microbiology 09/20 2239 UPPER RESP: Surveillance Culture - COMP 06/14 2240 GI: Surveillance Culture - COMP Diffential Diagnosis: Delirium due to alcohol withdrawal, resolving Alcohol use disorder Cocaine use disorder Sedative hypnotic use disorder Impression: 50-year-old male with alcohol and cocaine use disorders with chronic pattern of relapse and readmission. At present he remains somewhat confused. He would benefit from continued detox and then reevaluation of mood once more oriented. He will require substance specific follow-up and may benefit from medication to help with cravings. Provisional Treatment Plan: 1. Continue CIWA, vitamin supplementation, and Ativan as required with goal to decrease total daily amount by 20% daily once symptoms are under control. 2. We will educate patient on options for potential medications for craving mitigation once mental status has improved. 3. Appreciate social work consult for disposition planning. Thank you for including psychiatry in this case we will follow. A total of 60 minutes was spent with the patient with more than 50% of the time spent in counseling and/or coordination of care.
--- NOTE | 2016-09-21 15:44 | NUR ---
ATIVAN DECREASED TO 5MG ORDERED. PT HAS RECEIVED SECOND DOSE OF IV HALDOL.
[2016-09-22] VITALS (11 sets, daily range): BP systolic 110–152; BP diastolic 62–100
--- NOTE | 2016-09-22 | NUR ---
PATIENT AWOKE AFTER SLEEPING EARLIER. MONITOR SINUS RHYTHM AT RATE OF 88.VY=496/62.PATIENT CO OPERATIVE.INCONTINENT OF URINE,COMPLETE BED BATH GIVEN.ATIVAN DRIP AT 5 MG/HR.TAKING FOOD PO.
[2016-09-22 06:05] LABS: ABSOLUTE BASOPHIL COUNT 0 /CUMM (0.0-0.2); ABSOLUTE EOSINOPHIL COUNT 0 /CUMM (0.0-0.7); ABSOLUTE GRANULOCYTE CT 5.3 /CUMM (1.4-6.5); ABSOLUTE LYMPH COUNT 0.8 /CUMM (1.2-3.4); ABSOLUTE MONOCYTE COUNT 1.2 /CUMM (0.10-0.60); BASOPHIL % 0.5 % (0.0-2.0); EOSINOPHIL % 0.6 % (0-5); GRANULOCYTE % 72.2 % (42.2-75.2); HEMATOCRIT 31.3 % (42-52); MEAN CORPUSCULAR HGB 31.5 PG (27.0-31.0); MEAN CORPUSCULAR HGB CONC 33.3 G/DL (33.0-37.0); MEAN CORPUSCULAR VOLUME 94.6 FL (80.0-94.0); PLATELET COUNT 125 /CUMM (130-400); RBC DISTRIBUTION WIDTH 13.9 % (11.5-14.5); RED BLOOD CELL CT 3.31 /CUMM (4.70-6.10); WHITE BLOOD CELL COUNT 7.4 /CUMM (4.8-10.8)
--- NOTE | 2016-09-22 10:13 | PN- CRCU ---
Subjective HPI/Critical Care Issues: pt seen and examined on ativan 5/hr will begin po librium still with confusion afebrile 95% on room air Objective Current Medications: Current Medications Sig/Nidhi Start time Last Medication Dose Route Stop Time Status Admin Acetaminophen 1,000 MG Q6P PRN 09/19 2014 IV Cyanocobalamin/ 1 BAG DAILY 09/20 1000 AC 09/21 Thiamine/Pyridoxine IV 09/22 1759 1129 Dextrose/Water 1,000 ML Haloperidol 1 MG Q4P PRN 09/20 1600 AC 09/21 IM 1523 Hydromorphone HCl 0.2 MG Q6P PRN 09/19 2030 AC IV Ibuprofen 600 MG .STK-MED ONE 09/21 1608 DC PO 09/21 1609 Ibuprofen 600 MG Q6P PRN 09/19 2014 AC 09/21 PO 1610 Lorazepam 100 MG Q20H 09/22 0400 09/22 Sodium Chloride 1,000 ML IV 0341 Lorazepam 100 MG Q6H 09/21 1400 DC Sodium Chloride 1,000 ML IV Lorazepam 1 MG Q2P PRN 09/20 1415 AC 09/22 IV 0642 Lorazepam 100 MG Q20H 09/20 0800 DC 09/21 Sodium Chloride 1,000 ML IV 09/21 1359 0131 Lorazepam 2 MG Q2P PRN 09/19 2014 09/21 PO 1609 Lorazepam 1 MG Q2P PRN 09/19 2014 PO Potassium Phosphate 15 mMol ONE ONE 09/21 0745 DC 09/21 Dextrose/Water 250 ML IV 09/21 1148 0906 Thiamine HCl 500 MG TID 09/20 2200 09/21 Sodium Chloride 100 ML IV 09/22 1031 2115 Vital Signs & I&O Last 24 Hrs of Vitals and I&O: Vital Signs Date Time Temp Pulse Resp B/P B/P Pulse O2 O2 Flow FiO2 Mean Ox Delivery Rate 09/22 0800 98.7 80 20 142/88 09/22 0800 95 Room Air Room Air 09/22 0600 81 18 111/82 09/22 0400 98.5 74 20 120/82 09/22 0400 96 Room Air 09/22 0200 87 20 122/80 09/22 0000 97.9 88 20 110/62 09/22 0000 97.9 88 20 110/62 94 Room Air 09/22 0000 94 Room Air 09/21 2200 70 20 112/78 09/21 2000 94 Room Air 09/21 1600 98.0 84 18 114/83 98 Room Air Intake & Output 09/22 1600 09/22 0800 09/22 0000 Intake Total 1240 1387 Output Total 500 Balance 740 1387 Intake, IV 400 1147 Intake, Oral 840 240 Output, Urine 500 Exam Other Physical Findings: gen awake, some confusion heent ncat cvs s1, s2 lungs ctab abd soft, bs+ ext without edema Results Last 24 Hrs of Lab Results: Laboratory Tests 09/22/16 0359: Anion Gap 9, Estimated GFR > 60, Glucose 92, Calcium 8.6, Phosphorus 2.5, Magnesium 1.8, Total Bilirubin 0.3, AST 42, ALT 41, Albumin 3.1 L, CBC w Diff NO MAN DIFF REQ, RBC 3.31 L, MCV 94.6 H, MCH 31.5 H, RDW 13.9, MPV 7.0 L, Gran % 72.2, Lymphocytes % 10.8 L, Monocytes % 15.9 H, Eosinophils % 0.6, Basophils % 0.5, Absolute Granulocytes 5.3, Absolute Lymphocytes 0.8 L, Absolute Monocytes 1.2 H, Absolute Eosinophils 0, Absolute Basophils 0, PUBS MCHC 33.3 Impression/Plan Impression/Plan Impression/Plan: Impression 50 year old man * alcohol withdrawal and dependence and cocaine use * rib fractures * thrombocytopenia, improved Plan -librium 50mg po q6h -[facility] protocol -titrate ativan drip -on pain control -incentive spirometry if can follow direction -haldol as necessary -high dose thiamine -monitor platelets, ALPS for DVT prophylaxis - if continues to be stable tomorrow add heparin sq -iron studies, b12, folate TTS 35 min
--- NOTE | 2016-09-22 10:30 | PN- Resident CRCU ---
Subjective HPI/CRCU Issues: Afebrile, hemodynamically stable, saturating well on room air. Patient is still agitated and aggressive. This morning patient was confused and paranoid. He believes that someone is watching him through the ceiling. He still required 4 points soft medical restrains. Patient scored 0-20 since yesterday morning on CIWA score. Objective Vital Signs & I&O Last 8 Hrs of Vitals and I&O: Intake & Output 09/22 1600 Intake Total 948 Output Total 700 Balance 248 Intake, IV 848 Intake, Oral 100 Output, Urine 700 Exam General Appearance: well developed/nourished, alert, awake, anxious, agitated Head: atraumatic, normal appearance Respiratory: normal breath sounds, chest non-tender, no respiratory distress, lungs clear Cardiovascular: regular rate/rhythm Gastrointestinal: soft, non-tender Extremities: no edema Current Medications: Current Medications Sig/Nidhi Start time Last Medication Dose Route Stop Time Status Admin Acetaminophen 1,000 MG Q6P PRN 09/19 2014 IV Chlordiazepoxide HCl 50 MG Q6 09/22 1200 AC 09/22 PO 1300 Cyanocobalamin/ 1 BAG DAILY 09/20 1000 AC 09/22 Thiamine/Pyridoxine IV 09/22 1759 1057 Dextrose/Water 1,000 ML Haloperidol 1 MG Q4P PRN 09/20 1600 AC 09/21 IM 1523 Hydromorphone HCl 0.2 MG Q6P PRN 09/19 2030 AC IV Ibuprofen 600 MG Q6P PRN 09/19 2014 AC 09/21 PO 1610 Lorazepam 100 MG Q20H 09/22 0400 AC 09/22 Sodium Chloride 1,000 ML IV 0341 Lorazepam 100 MG Q6H 09/21 1400 DC Sodium Chloride 1,000 ML IV Lorazepam 1 MG Q2P PRN 09/20 1415 AC 09/22 IV 0642 Lorazepam 2 MG Q2P PRN 09/19 2014 AC 09/21 PO 1609 Lorazepam 1 MG Q2P PRN 09/19 2014 PO Thiamine HCl 500 MG TID 09/20 2200 DC 09/22 Sodium Chloride 100 ML IV 09/22 1031 1058 Impression/Plan Impression/Problem List Impression: This is 50-year-old male with extensive past medical history of alcohol abuse that lead to multiple admission with multiple complications(seizures and intubation). Patient present with chest pain, CT chest shows fifth and sixth right sided rib fracture. on lab thrombocytopenia which appears to be chronic, severe dehydration with hemoconcentration and hypokalemia with anion gap metabolic acidosis and acute kidney injury probably secondary to volume contraction and rhabdomyolysis. Patient is still altered, confused, agitated, has a short-term problem. #Hyperactive delirium secondary to alcohol withdrawal/ DT/ possible wernicke * Patient on 5 mg/h Ativan drip, will taper as possible. Use Ativan when necessary IV * We'll start patient on Librium 50 mg every 6 * Patient still showing withdrawal symptom, we will continue ICU monitoring * Patient is agitated, hallucinating, and dangerous to health care provider. We will continue a 4-point soft restraints, EKG daily, Haldol when necessary * He received 500 mg of IV thiamine 3 times a day for 2 days. Starting tomorrow we will give 250 mg IV daily for 5 days.(wernicke) * Patient has a long history of substance abuse we will follow psych recommendations #Acute kidney injury/Rhabdomyolysis/Dehydration(resolved) * Most likely his acute kidney injury secondary to dehydration and rhabdomyolysis * Continue IV hydration, until he tolerates oral intake. * BEP daily #Chronic thrombocytopenia * Chronic since year and a half * CBC daily * Hold off anticoagulants, if continue to improve and stable tomorrow we will start DVT prophylaxis #Leukocytosis(resolved) * X-ray this morning showed obesity which may represent atelectasis or pneumonia * Afebrile and Leukocytosis resolved * Watch off antibiotic, we'll start Unasyn with any suspicion of pneumonia. * CBC daily #Fifth and sixth right rib fractures * Pain management as necessary #Hypokalemia * Potassium 4.2 this a.m. up from 3.4 yesterday * We will replete potassium, magnesium and phosphorus as necessary #Macrocytic anemia -B12 and folic acid within normal limits -Low iron and TIBC were normal ferritin. -This most likely secondary to alcohol abuse. DVT PPx: ALPS only Diet: Heart healthy Full code Problem List: 1. Alcohol abuse Pain Ratin Tomorrow's Labs & Rationales: CBC and ICU bundle Plan DVT/Prophylaxis: mechanical, pharmacological
--- NOTE | 2016-09-22 18:55 | NUR ---
Received patient feeding himself and playing with his cell phone. Ativan gtt running at 5 mg/hr. PO librium started. CIWA 9-15. NSR 70s-90s on the monitor and SBP 130s-150s. On room air, lungs clear upon auscultation 96-99% RR-17. Patient noted to be increasingly anxious throughout the day and hallucinating. Called security to change patient's incontinence in the afternoon because patient was threatening the staff and making gun/shooting noises. [address] and reinformed. Banana bag running at 125 mls/hr. Safety maintained. Patient given frequent reorientation/reassurance. Bed alarm in place.
--- NOTE | 2016-09-22 20:34 | NUR ---
PATIENT ALERT.ORIGINALLY ABLE TO BE REDIRECTED, HOWEVER BECAME INCREASINGLY AGITATED.TAKING OFF LEADS,ATTEMPTING TO REMOVE IV,BECOMING AGRESSIVE TO STAFF.THREW ENSURE BOTTLE ACROSS THE ROOM.ATIVAN BOLUS GIVEN.IM HALDOL DOSE GIVEN. SOFT RESTRAINTS X4 REMAIN.PT WAS AWARE HE WAS IN [facility].
[2016-09-23] VITALS (14 sets, daily range): BP systolic 113–148; BP diastolic 47–96
--- NOTE | 2016-09-23 01:41 | NUR ---
PT RESTLESS AND AGITATED,TRYING TO GETT OOB. ON LIBRIUM AND ATIVAN GTT AT 5MG/H. S X [address]DENIES PAIN AT THIS TIME. SATURATION ON RA 87%, PLACED ON 2L, SATURATION 96%. ABDOMEN SOFT, NORMOACTIVE BS. INCONTINENT OF URINE KEPT CLEAN AND DRY.
[2016-09-23 04:42] LABS: ABSOLUTE BASOPHIL COUNT 0 /CUMM (0.0-0.2); ABSOLUTE EOSINOPHIL COUNT 0.1 /CUMM (0.0-0.7); ABSOLUTE MONOCYTE COUNT 0.9 /CUMM (0.10-0.60); BASOPHIL % 0.7 % (0.0-2.0); EOSINOPHIL % 1.2 % (0-5); GRANULOCYTE % 59.4 % (42.2-75.2); HEMATOCRIT 32.2 % (42-52); MEAN CORPUSCULAR HGB 31.4 PG (27.0-31.0); MEAN CORPUSCULAR HGB CONC 33.7 G/DL (33.0-37.0); MEAN CORPUSCULAR VOLUME 93.1 FL (80.0-94.0); MEAN PLATELET VOLUME 7.2 FL (7.4-10.4); PLATELET COUNT 185 /CUMM (130-400); RBC DISTRIBUTION WIDTH 13.6 % (11.5-14.5); RED BLOOD CELL CT 3.47 /CUMM (4.70-6.10); WHITE BLOOD CELL COUNT 5.1 /CUMM (4.8-10.8)
--- NOTE | 2016-09-23 09:26 | PN- Resident CRCU ---
Subjective HPI/CRCU Issues: Alcohol withdrawal 24 Hour Events: Seen and examined at bedside. Patient was mildly agitated and was holding on the food tray refusing to let it go. He is however alert and oriented to place. No acute overnight event of seizures reported. CIWA score aroun 11. Still on ATIVAN srip at 8mg/hr. Objective Vital Signs & I&O Last 8 Hrs of Vitals and I&O: Vital Signs Date Time Temp Pulse Resp B/P B/P Pulse O2 O2 Flow FiO2 Mean Ox Delivery Rate 09/23 1105 Room Air 09/23 1100 98.6 64 16 125/83 09/23 1030 95 Room Air 09/23 1000 98.6 60 18 145/96 09/23 0800 98.6 68 16 148/90 09/23 0800 96 Nasal 2.0L Cannula 09/23 0800 98.6 68 16 148/90 96 Nasal 2.0L Cannula 09/23 0600 50 28 140/87 09/23 0400 97.1 85 32 138/70 09/23 0400 97 Nasal 2.0L Cannula 09/23 0200 62 26 145/89 09/23 0000 97.6 63 22 136/70 09/23 0000 96 Nasal 2.0L Cannula 09/23 0000 97.6 63 22 136/70 96 Nasal 2.0L Cannula 09/22 2000 95 Room Air 09/22 1800 98.2 66 30 149/95 09/22 1600 98.3 62 24 146/100 09/22 1600 96 Room Air Room Air 09/22 1600 98.3 62 24 146/100 96 Room Air Room Air Intake & Output 09/23 1600 09/23 0800 09/23 0000 Intake Total 562 1321 Output Total 1000 Balance 562 321 Intake, IV 562 1201 Intake, Oral 120 Output, Urine 1000 Exam General Appearance: awake, anxious Head: atraumatic Respiratory: normal breath sounds, chest non-tender, no respiratory distress Cardiovascular: regular rate/rhythm Gastrointestinal: normal bowel sounds, soft, non-tender Extremities: normal inspection, normal capillary refill, normal range of motion, no edema Current Medications: Current Medications Sig/Nidhi Start time Last Medication Dose Route Stop Time Status Admin Acetaminophen 1,000 MG Q6P PRN 09/19 2014 AC IV Chlordiazepoxide HCl 50 MG Q6 09/23 1200 AC 09/23 PO 1214 Chlordiazepoxide HCl 50 MG Q6 09/22 1200 DC 09/23 PO 0548 Cyanocobalamin/ 1 BAG DAILY 09/20 1000 DC 09/22 Thiamine/Pyridoxine IV 09/22 1759 1057 Dextrose/Water 1,000 ML Ferrous Sulfate 325 MG TID 09/22 2200 AC 09/23 PO 0946 Haloperidol 1 MG Q4P PRN 09/20 1600 AC 09/22 IM 2028 Hydromorphone HCl 0.2 MG Q6P PRN 09/19 2030 AC IV Ibuprofen 600 MG Q6P PRN 09/19 2014 AC 09/21 PO 1610 Lorazepam 100 MG Q20H 09/22 0400 AC 09/22 Sodium Chloride 1,000 ML IV 2340 Lorazepam 1 MG Q2P PRN 09/20 1415 AC 09/22 IV 2032 Lorazepam 2 MG Q2P PRN 09/19 2014 AC 09/23 PO 0949 Lorazepam 1 MG Q2P PRN 09/19 2014 AC PO Magnesium Sulfate 1 GM Q2H 09/23 0930 DC 09/23 Dextrose/Water 100 ML IV 09/23 1329 1152 Potassium Chloride 40 MEQ ONCE ONE 09/23 0930 DC 09/23 PO 09/23 0931 0946 Thiamine HCl 250 MG DAILY 09/23 1000 AC 09/23 Sodium Chloride 100 ML IV 09/27 1030 1108 Impression/Plan Impression/Problem List Impression: This is 50-year-old male with extensive past medical history of alcohol abuse that lead to multiple admission with multiple complications(seizures and intubation). Patient present with chest pain, CT chest shows fifth and sixth right sided rib fracture. on lab thrombocytopenia which appears to be chronic, severe dehydration with hemoconcentration and hypokalemia with anion gap metabolic acidosis and acute kidney injury probably secondary to volume contraction and rhabdomyolysis. Patient is still altered, confused, agitated, has a short-term problem. #Hyperactive delirium secondary to alcohol withdrawal/ DT/ possible wernicke * Patient on 6 mg/h Ativan drip, will taper as possible. * Wi'll continue patient on Librium 50 mg every 6 * Patient still showing withdrawal symptom, we will continue ICU monitoring * 10 used to be agitated requiring soft 4 and possibly. * He received 500 mg of IV thiamine 3 times a day for 2 days. Today 250 mg IV daily for 5 days.(wernicke) * Patient has a long history of substance abuse we will follow psych recommendations #Acute kidney injury/Rhabdomyolysis/Dehydration(resolved) * Most likely his acute kidney injury secondary to dehydration and rhabdomyolysis * Continue IV hydration, until he tolerates oral intake. * BEP daily #Chronic thrombocytopenia * Chronic since year and a half * CBC daily * Hold off anticoagulants, if continue to improve and stable tomorrow we will start DVT prophylaxis #Leukocytosis(resolved) * X-ray this morning showed obesity which may represent atelectasis or pneumonia * Afebrile and Leukocytosis resolved * Watch off antibiotic, we'll start Unasyn with any suspicion of pneumonia. * CBC daily #Fifth and sixth right rib fractures * Pain management as necessary #Hypokalemia * We will replete potassium, magnesium and phosphorus as necessary #Macrocytic anemia -B12 and folic acid within normal limits -Low iron and TIBC were normal ferritin. -This most likely secondary to alcohol abuse. Problem List: 1. Alcohol withdrawal syndrome Pain Ratin Tomorrow's Labs & Rationales: ICU BUNDLE Plan DVT/Prophylaxis: mechanical, pharmacological
--- NOTE | 2016-09-23 09:27 | PN- CRCU ---
Subjective HPI/Critical Care Issues: pt seen and examined continued on benzos no events afebrile Objective Current Medications: Current Medications Sig/Nidhi Start time Last Medication Dose Route Stop Time Status Admin Acetaminophen 1,000 MG Q6P PRN 09/19 2014 AC IV Chlordiazepoxide HCl 50 MG Q6 09/22 1200 AC 09/23 PO 0548 Cyanocobalamin/ 1 BAG DAILY 09/20 1000 DC 09/22 Thiamine/Pyridoxine IV 09/22 1759 1057 Dextrose/Water 1,000 ML Ferrous Sulfate 325 MG TID 09/22 2200 AC 09/22 PO 2120 Haloperidol 1 MG Q4P PRN 09/20 1600 AC 09/22 IM 2028 Hydromorphone HCl 0.2 MG Q6P PRN 09/19 2029 AC IV Ibuprofen 600 MG Q6P PRN 09/19 2014 AC 09/21 PO 1610 Lorazepam 100 MG Q20H 09/22 0400 AC 09/22 Sodium Chloride 1,000 ML IV 2340 Lorazepam 1 MG Q2P PRN 09/20 1415 AC 09/22 IV 2032 Lorazepam 2 MG Q2P PRN 09/19 2014 AC 09/21 PO 1609 Lorazepam 1 MG Q2P PRN 09/19 2014 AC PO Thiamine HCl 250 MG DAILY 09/23 1000 AC Sodium Chloride 100 ML IV 09/27 1030 Thiamine HCl 500 MG TID 09/20 2200 DC 09/22 Sodium Chloride 100 ML IV 09/22 1031 1058 Vital Signs & I&O Last 24 Hrs of Vitals and I&O: Vital Signs Date Time Temp Pulse Resp B/P B/P Pulse O2 O2 Flow FiO2 Mean Ox Delivery Rate 09/23 0800 98.6 68 16 148/90 09/23 0800 96 Nasal 2.0L Cannula 09/23 0800 98.6 68 16 148/90 96 Nasal 2.0L Cannula 09/23 0600 50 28 140/87 09/23 0400 97.1 85 32 138/70 09/23 0400 97 Nasal 2.0L Cannula 09/23 0200 62 26 145/89 09/23 0000 97.6 63 22 136/70 09/23 0000 96 Nasal 2.0L Cannula 09/23 0000 97.6 63 22 136/70 96 Nasal 2.0L Cannula 09/22 2000 95 Room Air 09/22 1800 98.2 66 30 149/95 09/22 1600 98.3 62 24 146/100 09/22 1600 96 Room Air Room Air 09/22 1600 98.3 62 24 146/100 96 Room Air Room Air 09/22 1400 9838.0 702 20 152/99 09/22 1300 98.8 74 17 133/96 09/22 1200 98.8 66 17 140/90 09/22 1200 96 Room Air Room Air 09/22 1000 98.7 74 17 144/92 Intake & Output 09/23 1600 09/23 0800 09/23 0000 Intake Total 562 1321 Output Total 1000 Balance 562 321 Intake, IV 562 1201 Intake, Oral 120 Output, Urine 1000 Exam Other Physical Findings: gen awake, some confusion heent ncat cvs s1, s2 lungs ctab abd soft, bs+ ext without edema Results Last 24 Hrs of Lab Results: Laboratory Tests 09/23/16 0412: Anion Gap 8, Estimated GFR > 60, Glucose 88, Calcium 8.8, Phosphorus 3.6, Magnesium 1.5 L, Total Bilirubin 0.4, AST 46, ALT 46, Albumin 3.3 L, CBC w Diff NO MAN DIFF REQ, RBC 3.47 L, MCV 93.1, MCH 31.4 H, RDW 13.6, MPV 7.2 L, Gran % 59.4, Lymphocytes % 20.2 L, Monocytes % 18.5 H, Eosinophils % 1.2, Basophils % 0.7, Absolute Granulocytes 3.0, Absolute Lymphocytes 1.0 L, Absolute Monocytes 0.9 H, Absolute Eosinophils 0.1, Absolute Basophils 0, PUBS MCHC 33.7 Impression/Plan Impression/Plan Impression/Plan: Impression 50 year old man * alcohol withdrawal and dependence and cocaine use * rib fractures * thrombocytopenia, improved Plan -librium 50mg po q6h -ciwa protocol -titrate ativan drip -on pain control -incentive spirometry if can follow direction -haldol as necessary -high dose thiamine -monitor platelets, ALPS for DVT prophylaxis - if continues to be stable tomorrow add heparin sq -iron studies, b12, folate TTS 35 min
--- NOTE | 2016-09-23 11:35 | NUR ---
Received patient at 0800, increasing agitated, hallucinating, and restless. Ativan gtt running at 7mg/hr. SAS-5, CIWA-15. Occasionally falling asleep, SAS-3 after getting 2mg PO ativan at 10 am. Ativan titrated down per EMAR/protocol. Continuing to given reassurance/support. Oriented to self only. In four point soft restraints and a jose luis. Bed alarm on and plugged in. Patient originally on 2L nasal cannula but pulled it off and but satting 94% on room air. Lungs clear. Abdomen soft/nontender, +bowel sounds. Inc of large amounts of urine. Mag 1.5 and repleted w/ 2 runs 1 gram IV and Potassium 3.5 and patient tolerated 40 meq PO well. Ate breakfast well via feed. NSR on the monitor 60s-80s, can go down into the 50s w/ sleep. AXO=[id number]. Denies pain. Continually reoriented. PO librium given per EMAR. Safety maintained.
[2016-09-24] VITALS (11 sets, daily range): BP systolic 102–130; BP diastolic 68–91
--- NOTE | 2016-09-24 01:06 | NUR ---
INC LG AMT URINE [place] CATH APPLIED. PT CONFUSED TO TIME, HAVING EPISODES OF CONFUSED CONVERSATION.
[2016-09-24 04:59] LABS: ABSOLUTE BASOPHIL COUNT 0.1 /CUMM (0.0-0.2); ABSOLUTE EOSINOPHIL COUNT 0.1 /CUMM (0.0-0.7); ABSOLUTE GRANULOCYTE CT 2.4 /CUMM (1.4-6.5); ABSOLUTE LYMPH COUNT 1.1 /CUMM (1.2-3.4); ABSOLUTE MONOCYTE COUNT 0.8 /CUMM (0.10-0.60); BASOPHIL % 1.4 % (0.0-2.0); EOSINOPHIL % 1.9 % (0-5); GRANULOCYTE % 54.1 % (42.2-75.2); HEMATOCRIT 34.9 % (42-52); MEAN CORPUSCULAR HGB 31.2 PG (27.0-31.0); MEAN CORPUSCULAR HGB CONC 33.3 G/DL (33.0-37.0); MEAN CORPUSCULAR VOLUME 93.6 FL (80.0-94.0); MEAN PLATELET VOLUME 6.4 FL (7.4-10.4); PLATELET COUNT 267 /CUMM (130-400); RBC DISTRIBUTION WIDTH 13.5 % (11.5-14.5); RED BLOOD CELL CT 3.73 /CUMM (4.70-6.10); WHITE BLOOD CELL COUNT 4.4 /CUMM (4.8-10.8)
--- NOTE | 2016-09-24 08:12 | PN- Resident CRCU ---
See Addendum Subjective HPI/CRCU Issues: Afebrile, hemodynamically stable, saturating well on room air and looks more awake and alert compare to yesterday. This morning patient is eating breakfast in bed looks relaxed and comfortable, however he still on 4 points soft restraint and jose luis for unsafe ambulation and pulling out IVs yesterday. He is an Ativan drip running 4 mg/h. He denies any current active complaints. Objective Vital Signs & I&O Last 8 Hrs of Vitals and I&O: Vital Signs Date Time Temp Pulse Resp B/P B/P Pulse O2 O2 Flow FiO2 Mean Ox Delivery Rate 09/24 0800 98.5 76 16 130/91 09/24 0800 96 Room Air Room Air 09/24 0609 98.0 55 16 128/85 09/24 0400 98.0 51 16 129/84 09/24 0200 97.4 57 16 124/80 09/24 0000 97.4 61 16 125/83 09/24 0000 97.4 61 16 123/83 95 Room Air 09/23 2200 98.8 59 18 123/84 09/23 2000 98.8 69 18 114/47 09/23 1800 97.7 78 18 118/78 09/23 1600 97.7 58 16 120/70 09/23 1600 94 Room Air Room Air 09/23 1600 97.7 58 16 120/70 91 Room Air Room Air 09/23 1500 99.0 64 16 114/72 18 1400 99.0 76 16 113/76 09/23 1200 99.0 60 16 120/80 09/23 1200 94 Room Air Room Air 09/23 1105 Room Air 09/23 1100 98.6 64 16 125/83 09/23 1030 95 Room Air 18 1000 98.6 60 18 145/96 Intake & Output 09/24 1600 09/24 0800 09/24 0000 Intake Total 720 1120 Output Total 1100 Balance -380 1120 Intake, IV 400 400 Intake, Oral 320 720 Output, Urine 1100 Exam General Appearance: no apparent distress, alert, awake, comfortable Head: atraumatic, normal appearance Respiratory: normal breath sounds, chest non-tender, no respiratory distress, quiet respiration, lungs clear Cardiovascular: regular rate/rhythm Gastrointestinal: normal bowel sounds, soft, non-tender Extremities: normal inspection, no edema IV Drips IV Drips: Ativan 4 mg/H Current Medications: Current Medications Sig/Nidhi Start time Last Medication Dose Route Stop Time Status Admin Acetaminophen 1,000 MG Q6P PRN 09/19 2014 AC IV Chlordiazepoxide HCl 50 MG Q6 09/23 1200 AC 09/24 PO 0625 Chlordiazepoxide HCl 50 MG Q6 09/22 1200 DC 09/23 PO 0548 Ferrous Sulfate 325 MG TID 09/22 2200 AC 09/23 PO 2151 Haloperidol 1 MG Q4P PRN 09/20 1600 AC 09/22 IM 2028 Hydromorphone HCl 0.2 MG Q6P PRN 09/19 2030 AC IV Ibuprofen 600 MG Q6P PRN 09/19 2014 AC 09/21 PO 1610 Lorazepam 100 MG Q20H 09/22 0400 AC 09/23 Sodium Chloride 1,000 ML IV 2151 Lorazepam 1 MG Q2P PRN 09/20 1415 AC 09/22 IV 2032 Lorazepam 2 MG Q2P PRN 09/19 2014 AC 09/23 PO 0949 Lorazepam 1 MG Q2P PRN 09/19 2014 AC PO Magnesium Oxide 400 MG BID 09/24 1000 AC PO Magnesium Sulfate 1 GM Q2H 09/23 0930 DC 09/23 Dextrose/Water 100 ML IV 09/23 1329 1152 Potassium Chloride 20 MEQ ONCE ONE 09/24 0815 DC PO 09/24 0816 Potassium Chloride 40 MEQ ONCE ONE 09/23 0930 DC 09/23 PO 09/23 0931 0946 Thiamine HCl 250 MG DAILY 09/23 1000 AC 09/23 Sodium Chloride 100 ML IV 09/27 1030 1108 Impression/Plan Impression/Problem List Impression: This is 50-year-old male with extensive past medical history of alcohol abuse that lead to multiple admission with multiple complications(seizures and intubation). Patient present with chest pain, CT chest shows fifth and sixth right sided rib fracture. on lab thrombocytopenia, severe dehydration with hemoconcentration and hypokalemia with anion gap metabolic acidosis and acute kidney injury secondary to volume contraction and rhabdomyolysis. #Hyperactive delirium secondary to alcohol withdrawal/ DT/ possible wernicke * Patient on 4 mg/h Ativan drip, will taper as possible. Use IV Ativan when necessary * Continue patient on Librium 50 mg every 6 * Patient is improving, most likely we will discontinue 4-point soft restraints later today. * Continue 250 mg IV daily for 4 days.(wernicke) * Patient has a long history of substance abuse we will follow psych recommendations #Acute kidney injury/Rhabdomyolysis/Dehydration(resolved). * BEP daily #Chronic thrombocytopenia * Improved to 267 today up from 107 on admission * CBC daily #Leukocytosis(resolved) * CBC daily #Fifth and sixth right rib fractures * Pain management as necessary * Intensive spirometry as tolerated #Hypokalemia * We will keep potassium of 4, magnesium 2, and phosphorus at 4 * We will replete potassium, magnesium and phosphorus as necessary #Macrocytic anemia -B12 and folic acid within normal limits -Low iron and TIBC were normal ferritin. -His anemia most likely secondary to alcohol abuse. DVT PPx: Mechanical and pharmacological Diet: Heart healthy Full code Problem List: 1. 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
--- NOTE | 2016-09-24 15:44 | NUR ---
Patient improving in mentation throughout the shift. Did well with trialing with 4 point restraints removed. Order d/c'd and jose luis remaining in place for patient's sudden impulsiveness after sleeping. Ativan gtt titrated down to 2 mg/hr at change of shift w/ SAS-3-4 and CIWA 5. Patient denies complaints. Has some anxiety occasionally and a slight headache but no tremors/agitation. Bed alarm plugged in. Safety maintained. Patient frequently reoriented.
--- NOTE | 2016-09-24 20:57 | NUR ---
PT RECEIVED SLEEPING, EASILY AROUSED BY NAME, SAS 4, ALERT TO PERSON PLACE OFF ON DAY OF WEEK. FOLLOWED ALL COMMANDS, COOPERATIVE. ROBB VEST IN PLACE. ATIVAN DRIP DECREASED TO 1MG/HR PER PROTOCOL. HR SR 60'S TO 80'S. PT REQUESTED SOME MILK AND CRACKERS. PT ABLE TO FEED SELF, PT SET UP TO BRUSH TEETH. [place] CATH IN PLACE WITH ADEQUATE URINE. NO COMPLAINTS AT THIS TIME.
[2016-09-25] VITALS (7 sets, daily range): BP systolic 116–130; BP diastolic 62–87
[2016-09-25 04:26] LABS: ABSOLUTE BASOPHIL COUNT 0 /CUMM (0.0-0.2); ABSOLUTE EOSINOPHIL COUNT 0.1 /CUMM (0.0-0.7); ABSOLUTE LYMPH COUNT 1.1 /CUMM (1.2-3.4); ABSOLUTE MONOCYTE COUNT 0.7 /CUMM (0.10-0.60); BASOPHIL % 0.6 % (0.0-2.0); EOSINOPHIL % 1.5 % (0-5); GRANULOCYTE % 60.9 % (42.2-75.2); HEMATOCRIT 35.3 % (42-52); MEAN CORPUSCULAR HGB CONC 33.1 G/DL (33.0-37.0); MEAN CORPUSCULAR VOLUME 93.5 FL (80.0-94.0); MEAN PLATELET VOLUME 7.1 FL (7.4-10.4); PLATELET COUNT 322 /CUMM (130-400); RBC DISTRIBUTION WIDTH 13.7 % (11.5-14.5); RED BLOOD CELL CT 3.77 /CUMM (4.70-6.10); WHITE BLOOD CELL COUNT 4.9 /CUMM (4.8-10.8)
--- NOTE | 2016-09-25 06:22 | NUR ---
PT HAS BECOME INCREASINGLY WORRIED ABOUT HIS KEYS TO HIS HOUSE AND LEAVING THE HOSPITAL. PT LOOKED THROUGH BELONGINGS BAG AND CANNOT FIND THEM. THIS RN UNSURE IF PT CAME IN WITH ANY KEYS. PT HAS BEEN EXPRESSING WISHES TO SIGN OUT AMA THIS MORNING. NOTIFIED MD PARK OF ABOVE. NO FURTHER ORDERS GIVEN.
--- NOTE | 2016-09-25 06:51 | NUR ---
TALKED WITH NOLBERTO'S MOM ON PHONE WHO LIVES NEXT DOOR TO HIM AND STATES SHE OWNS THE PROPERTY HE LIVES IN. INFORMED HER OF HIS CONSTANT CONCERN FOR HIS VALUABLES AND WHERE HIS KEYS MIGHT BE. PER MOTHER SHE DOES NOT HAVE LITTLE TO THE HOUSE ? BUT WILL ASK HER GRANDSON'S ABOUT THIS AND WILL CHECK ON HOUSE FOR HIM.
--- NOTE | 2016-09-25 08:01 | PN- Resident CRCU ---
Subjective HPI/CRCU Issues: Afebrile, hemodynamically stable, and saturating well on room air. Patient is laying on bed looks relaxed and comfortable. Soft restraint, jose luis, and Ativan drip were DC'd. No acute overnight events were reported. He denies any current active complaints. Objective Vital Signs & I&O Last 8 Hrs of Vitals and I&O: Vital Signs Date Time Temp Pulse Resp B/P B/P Pulse O2 O2 Flow FiO2 Mean Ox Delivery Rate 09/25 0600 63 18 119/82 09/25 0400 80 16 125/87 09/25 0400 94 Room Air 09/25 0000 98.1 70 18 122/76 09/25 0000 96 Room Air 09/24 2341 98.1 70 18 122/76 96 Room Air 09/24 2200 65 16 127/75 09/24 2000 97.8 84 18 102/68 09/24 2000 94 Room Air 09/24 1600 97.9 77 18 120/84 96 Room Air 09/24 1400 97.9 74 16 112/68 09/24 1200 97.9 77 18 120/84 09/24 1200 96 Room Air Room Air Intake & Output 09/25 1600 09/25 0800 09/25 0000 Intake Total 1000 789 Output Total 1900 450 Balance -900 339 Intake, IV 0 169 Intake, Oral 1000 620 Number 0 1 Bowel Movements Output, Urine 1900 450 Exam General Appearance: well developed/nourished, no apparent distress, alert, awake , comfortable Head: atraumatic, normal appearance Respiratory: normal breath sounds, chest non-tender, no respiratory distress Cardiovascular: regular rate/rhythm Gastrointestinal: normal bowel sounds, soft, non-tender Extremities: normal inspection, no edema Current Medications: Current Medications Sig/Nidhi Start time Last Medication Dose Route Stop Time Status Admin Acetaminophen 1,000 MG Q6P PRN 09/19 2014 AC IV Chlordiazepoxide HCl 50 MG Q6 09/23 1200 AC 09/25 PO 0552 Ferrous Sulfate 325 MG TID 09/22 2199 AC 09/24 PO 213 Haloperidol 1 MG Q4P PRN 09/20 1600 AC 09/22 IM 2027 Heparin Sodium 5,000 UNIT Q8 09/24 1400 AC 09/25 (Porcine) SC 0552 Hydromorphone HCl 0.2 MG Q6P PRN 09/19 2029 AC IV Ibuprofen 600 MG Q6P PRN 09/19 2014 AC 09/21 PO 1610 Lorazepam 100 MG Q24H 09/24 1015 DC 09/24 Sodium Chloride 1,000 ML IV 1108 Lorazepam 100 MG Q20H 09/22 0400 DC 09/23 Sodium Chloride 1,000 ML IV 09/24 1114 2151 Lorazepam 1 MG Q2P PRN 09/20 1415 AC 09/22 IV 2032 Lorazepam 2 MG Q2P PRN 09/19 2014 09/23 PO 0949 Lorazepam 1 MG Q2P PRN 09/19 2014 AC PO Magnesium Oxide 400 MG BID 09/24 1000 AC 09/24 PO 2139 Magnesium Sulfate 1 GM ONCE ONE 09/25 0745 AC Dextrose/Water 100 ML IV 09/25 1144 Potassium Chloride 40 MEQ ONCE ONE 09/25 0745 DC PO 09/25 0746 Thiamine HCl 250 MG DAILY 09/23 1000 AC 09/24 Sodium Chloride 100 ML IV 09/27 1030 1100 Impression/Plan Impression/Problem List Impression: This is 50-year-old male with extensive past medical history of alcohol abuse that lead to multiple admission with multiple complications(seizures and intubation). Patient present with chest pain, CT chest shows fifth and sixth right sided rib fracture. on lab thrombocytopenia, severe dehydration with hemoconcentration and hypokalemia with anion gap metabolic acidosis and acute kidney injury secondary to volume contraction and rhabdomyolysis. #Hyperactive delirium secondary to alcohol withdrawal/ DT/ possible wernicke * Ativan drip was DC'd today * Soft restraint and jose luis was DC'd yesterday * Continue patient on Librium 50 mg every 6, will start taper tomorrow * Continue 250 mg IV daily for 3 more days.(wernicke) * Patient has a long history of substance abuse we will follow psych recommendations #Acute kidney injury/Rhabdomyolysis/Dehydration(resolved). * BEP daily #Chronic thrombocytopenia(resolved) * Improved to 322 today up from 107 on admission * CBC daily #Leukocytosis(resolved) * CBC daily #Fifth and sixth right rib fractures * Pain management as necessary * Intensive spirometry as tolerated #Hypokalemia * We will keep potassium of 4, magnesium 2, and phosphorus at 4 * We will replete potassium, magnesium and phosphorus as necessary #Macrocytic anemia -B12 and folic acid within normal limits -Low iron and TIBC were normal ferritin. -His anemia most likely secondary to alcohol abuse. DVT PPx: Mechanical and pharmacological Diet: Heart healthy Full code Problem List: 1. Alcohol abuse Pain Ratin Tomorrow's Labs & Rationales: CBC and BEP Plan DVT/Prophylaxis: mechanical, pharmacological
--- NOTE | 2016-09-25 08:50 | PN- CRCU ---
Subjective HPI/Critical Care Issues: Sitting in bed eating breakfast Doing well afebrile still tremulous Objective Current Medications: Current Medications Sig/Nidhi Start time Last Medication Dose Route Stop Time Status Admin Acetaminophen 1,000 MG Q6P PRN 09/19 2014 IV Chlordiazepoxide HCl 50 MG Q6 09/23 1200 AC 09/25 PO 0552 Ferrous Sulfate 325 MG TID 09/22 2200 AC 09/24 PO 2139 Haloperidol 1 MG Q4P PRN 09/20 1600 AC 09/22 IM 2028 Heparin Sodium 5,000 UNIT Q8 09/24 1400 AC 09/25 (Porcine) SC 0552 Hydromorphone HCl 0.2 MG Q6P PRN 09/19 2029 AC IV Ibuprofen 600 MG Q6P PRN 09/19 2014 AC 09/21 PO 1610 Lorazepam 100 MG Q24H 09/24 1015 DC 09/24 Sodium Chloride 1,000 ML IV 1108 Lorazepam 100 MG Q20H 09/22 0400 DC 09/23 Sodium Chloride 1,000 ML IV 09/24 1114 2151 Lorazepam 1 MG Q2P PRN 09/20 1415 AC 09/22 IV 2032 Lorazepam 2 MG Q2P PRN 09/19 2014 AC 09/23 PO 0949 Lorazepam 1 MG Q2P PRN 09/19 2014 PO Magnesium Oxide 400 MG BID 09/24 1000 AC 09/24 PO 2139 Magnesium Sulfate 1 GM ONCE ONE 09/25 0745 AC Dextrose/Water 100 ML IV 09/25 1144 Potassium Chloride 40 MEQ ONCE ONE 09/25 0745 DC PO 09/25 0746 Thiamine HCl 250 MG DAILY 09/23 1000 AC 09/24 Sodium Chloride 100 ML IV 09/27 1030 1100 Vital Signs & I&O Last 24 Hrs of Vitals and I&O: Vital Signs Date Time Temp Pulse Resp B/P B/P Pulse O2 O2 Flow FiO2 Mean Ox Delivery Rate 09/25 0600 63 18 119/82 09/25 0400 80 16 125/87 09/25 0400 94 Room Air 09/25 0000 98.1 70 18 122/76 09/25 0000 96 Room Air 09/24 2341 98.1 70 18 122/76 96 Room Air 09/24 2200 65 16 127/75 09/25 1999 97.8 84 18 102/68 09/24 2000 94 Room Air 09/24 1600 97.9 77 18 120/84 96 Room Air 09/24 1400 97.9 74 16 112/68 09/24 1200 97.9 77 18 120/84 09/24 1200 96 Room Air Room Air Intake & Output 09/25 1600 09/25 0800 09/25 0000 Intake Total 1000 789 Output Total 1900 450 Balance -900 339 Intake, IV 0 169 Intake, Oral 1000 620 Number 0 1 Bowel Movements Output, Urine 1900 450 Impression/Plan Impression/Plan Impression/Plan: General Appearance: no apparent distress, alert, awake, comfortable Head: atraumatic, normal appearance Respiratory: normal breath sounds, chest non-tender, no respiratory distress, quiet respiration, lungs clear Cardiovascular: regular rate/rhythm Gastrointestinal: normal bowel sounds, soft, non-tender Extremities: normal inspection, no edema This is 50-year-old male with extensive past medical history of alcohol abuse that lead to multiple admission with multiple complications(seizures and intubation). Patient present with chest pain, CT chest shows fifth and sixth right sided rib fracture. on lab thrombocytopenia, severe dehydration with hemoconcentration and hypokalemia with anion gap metabolic acidosis and acute kidney injury secondary to volume contraction and rhabdomyolysis. He was also going through sig DT and was admitted to the ICU ISsues Severe alcohol abuse with delirium tremens with withdrawal syndrome Resolved acute kidney injury and rhabdomyolysis Chronic thrombocytopenia which is slowly improving Resolved leukocytosis 15 6 hip fracture probably from a fall Anemia Significant cocaine use Atelectasis and mild pleural thickening from his rib fracture Cervical degenerative changes Right nasal polyp RECOMMENDATION Patient is now stable can be transferred to a regular medical floor Continue chlordiazepoxide can increase his dose to 75 mg every 6 and if stable can reduce down to 50 every 6 and taper him down to 50 every 8 tomorrow Reduce iron to once a day Continue multivitamin Change him to Lovenox once a day for DVT prophylaxis
--- NOTE | 2016-09-25 10:18 | NUR ---
PT. ALLOWED TO GO THROUGH HIS BELOINGINGS AND FOUND HIS MISSING KEYS IN A ZIPPERED POCKET. CALLED HIS MOTHER TO LET HER KNOW. PT. REPORTS RELIEF, HAD BEEN ANXIOUS ABOUT MISSING KEYS.
[2016-09-26 02:00] VITALS: BP 134/76
[2016-09-26 02:11] VITALS: BP 134/76
[2016-09-26 06:00] VITALS: BP 130/82
[2016-09-26 06:36] VITALS: BP 130/82
--- NOTE | 2016-09-26 08:19 | PN- Housestaff ---
Subjective Follow-up For: Alcohol detoxification Alcohol withdrawal Status post mechanical fall Right fifth and sixth rib fractures Complaints: pain scale (0-10) Subjective: Patient was seen and examined this morning. He is alert awake and oriented to time place and person. No acute events noticed overnight. He was transferred from ICU to general medicine floor after management of alcohol detoxification. Ativan drip was discontinued. His CIWA score were between 0 and 2. He denied any tremors, shaking, anxiety, hallucinations. He does report 5 out of 10 pain at the site of rib fractures. Relieved with the pain medications. Vitals remained stable. Afebrile, heart rate 57, respiratory rate 18, blood pressure 130/82, saturating at 95 on room air. Review of Systems Constitutional: Reports: no symptoms. Objective Last 24 Hrs of Vital Signs/I&O Vital Signs Date Time Temp Pulse Resp B/P B/P Pulse O2 O2 Flow FiO2 Mean Ox Delivery Rate 09/26 0636 97.9 57 18 130/82 95 Room Air 09/26 0600 97.9 57 18 130/82 09/26 0211 98.9 60 20 134/76 94 Room Air 09/26 0200 98.9 60 20 134/76 09/26 0000 93 Room Air 09/25 2232 97.7 61 20 116/62 93 Room Air 09/25 1539 97.7 61 20 116/62 93 Room Air Intake & Output 09/26 1600 09/26 0800 09/26 0000 Intake Total 320 600 Output Total Balance 320 600 Intake, IV 0 Intake, Oral 320 600 Number 0 Bowel Movements Physical Exam General Appearance: Alert, Oriented X3, Cooperative, No Acute Distress Skin: No Rashes, No Breakdown HEENT: Atraumatic, PERRLA, EOMI, Mucous Membr. moist/pink Neck: Supple, No JVD Lymphatic: Cervical nl Cardiovascular: Normal S1, Normal S2 Lungs: Normal Air Movement Abdomen: Normal Bowel Sounds, Soft, No Tenderness Neurological: Strength at 5/5 X4 Ext, Cranial Nerves 3-12 NL Extremities: No Clubbing, No Cyanosis, No Edema Vascular: Pulses Symmetrical Current Medications: Current Medications Sig/Nidhi Start time Last Medication Dose Route Stop Time Status Admin Acetaminophen 650 MG Q6 09/26 1356 UNVr PO Acetaminophen 1,000 MG Q6P PRN 09/19 2014 AC IV Chlordiazepoxide HCl 50 MG Q8 09/26 1400 AC 09/26 PO 1326 Chlordiazepoxide HCl 50 MG Q6 09/23 1200 DC 09/26 PO 0540 Enoxaparin Sodium 40 MG DAILY 09/25 1000 AC 09/26 SC 0847 Ferrous Sulfate 325 MG DAILY 09/25 1000 AC 09/26 PO 0847 Folic Acid 1 MG DAILY 09/26 1355 UNVr PO Haloperidol 1 MG Q4P PRN 09/20 1600 DC 09/22 IM 2028 Hydromorphone HCl 1 MG Q4P PRN 09/26 1400 UNVr PO Hydromorphone HCl 0.2 MG Q6P PRN 09/19 2030 DC 09/26 IV 0742 Ibuprofen 600 MG .STK-MED ONE 09/25 2352 DC PO 09/25 2353 Ibuprofen 600 MG .STK-MED ONE 09/25 1549 DC PO 09/25 1550 Ibuprofen 600 MG Q6P PRN 09/19 2015 AC 09/25 PO 2353 Lorazepam 1 MG Q2P PRN 09/26 1000 AC PO Lorazepam 1 MG Q2P PRN 09/20 1415 DC 09/22 IV 2032 Lorazepam 2 MG Q2P PRN 09/19 2014 DC 09/23 PO 0949 Lorazepam 1 MG Q2P PRN 09/19 2014 DC PO Magnesium Oxide 400 MG BID 09/24 1000 AC 09/26 PO 0847 Multivitamins 1 TAB DAILY 09/26 1355 UNVr PO Thiamine HCl 250 MG DAILY 09/23 1000 AC 09/26 Sodium Chloride 100 ML IV 09/27 1030 0847 Last 24 Hrs of Lab/Thomas Results Last 24 Hrs of Labs/Mics: Laboratory Tests 09/26/16 0635: Anion Gap 4 L, Estimated GFR > 60, BUN/Creatinine Ratio 20.0 Assessment/Plan Assessment: This is a 50-year-old gentleman with past medical history of alcohol dependence with history of previous alcohol withdrawal seizure on multiple occasions, ICU admission including intubation for alcohol withdrawal, cocaine abuser, prior episode of pancreatitis, peptic ulcer disease, no other significant past medical history, current cocaine abuser came in with chief complaint off pain in the right side of the chest after a mechanical fall and hallucinations and delirious secondary to alcohol withdrawal. reQuesting for alcohol detoxification Vitals on admission MAXIMUM TEMPERATURE of 98.9, he was tachycardic with average rate around 100-120, blood pressure was found to be systolic ranging from 104- 167, diastolic ranging from 60-90 mmHg, he was 99% saturating on room air. White count of 13.3, H/H of 16.1/47.6, platelet count of 107 (baseline around 100 in the year of 2015, last value noted to be 292 in 2014, most of the platelets in 2016 have been on the lower side). INR of 1.08. ABG pH of 7.47/PCO2 of 33, PO2 of 93, bicarbonate 23, carboxyhemoglobin of 1.4. Sodium of 129, potassium of 3.5, chloride of 95, bicarbonate 24, anion gap of 10 , creatinine of 2.3 (baseline 0.9), BUN of 37, glucose of 105, initial lactic acid was negative at 0.8. UA essentially negative. Urine toxicology positive for cocaine. Serum alcohol level less than 10. CT head did not show any acute intracranial pathology. CT chest showed right lateral fifth rib fracture, which was mildly displaced, nondisplaced right lateral sixth rib fracture as well, along with chronic osteoarthritis changes. No pneumothorax or lung contusion was noted. Foot x-ray did not show any acute fracture or dislocation. CT cervical spine did not demonstrate any acute fracture. He was admitted to the ICU for alcohol withdrawal, very high CIWAS, warranting IV Ativan drip and close monitoring at the critical care unit. Problem list along with assessment and plan #1 alcohol withdrawal #2 acute kidney injury, likely prerenal. #3 rhabdomyolysis. #4 anion gap metabolic acidosis secondary to alcohol intoxication. #5 thrombocytopenia most likely secondary to alcohol, chronic in nature. #6 leukocytosis most likely reactive. #7 hyponatremia. #8 hypokalemia. #9 transaminitis secondary to alcoholism #10 mechanical fall with right fifth and sixth rib fracture. #Hyperactive delirium secondary to alcohol withdrawal/ DT/ possible wernicke He was admitted to the ICU for alcohol withdrawal, very high CIWAS, warranting IV Ativan drip and close monitoring at the critical care unit. * Ativan drip was DC'd 09/22/2016. * Soft restraint and jose luis was DC'd. * Sitter was discontinued * mentating well, off from ativan * Transfer to general medicine floor on 09/25/2016 * Continue to monitor CIWA, scores running low * Continue patient on Librium 50 mg every 8hours * We'll continue to taper Librium * Ativan per CIWA as required * Continue thiamine 250 mg IV daily for 2 more days.(wernicke) * Multivitamin * Folate * Patient has a long history of substance abuse we will follow psych recommendations. #Acute kidney injury/Rhabdomyolysis/Dehydration(resolved). He had elevated creatinine kinase and creatinine elevated up to 2.3. He was dehydrated, the worsening creatinine could also be secondary to rhabdo, he needed IV hydration. * Acute kidney injury resolved * Bun and creatinine were normal * IV fluids discontinued * Avoid NSAID * Avoid nephrotoxins Hypokalemic/hypomagnesemic. Anion gap metabolic acidosis secondary to alcohol intoxication. * repleted potassium/magnesium to keep potassium above 4 and magnesium above 2. * Potassium and magnesium were normal. #Chronic thrombocytopenia(resolved) * Thrombocytopenia at 107, platelets have been low since last 1-1/2 years. * Continued to trend platelets. * H&H stable, most likely hemoconcentrated due to dehydration. * Improved to 322 from 107 on admission #Leukocytosis(resolved) Reactive luecocytosis * Patient did not have any fever, vitals stable. * No evidence of any kind of infection. * Mildly elevated white count most likely reactive. * Continue to follow. #Fifth and sixth right rib fractures * Pain management as necessary * Scheduled Tylenol 650 mg every 6 hours * Intensive spirometry as tolerated * Saturating greater than 95% on room air, no apparent respiratory distress. * ABG showed anion gap metabolic acidosis. * CXR negative. #Macrocytic anemia -B12 and folic acid within normal limits -Low iron and TIBC were normal ferritin. -His anemia most likely secondary to alcohol abuse. Toxic encephalopathy * Patient was hallucinating, confused, not alert and oriented. * Continue IV Ativan. * No focal neurological deficits. * Altered mental status secondary to toxic encephalopathy 2/2 to alcohol intoxication. * Order #7 was called at the emergency department as the patient was extremely agitated. * One time of Haldol was given. * Haldol when necessary if extremely agitated, watch Qtc. DVT PPx: Mechanical and pharmacological Diet: Heart healthy Full code Problem List: 1. Alcohol abuse Pain Ratin Pain Location: right rib pain Pain Goal: Remain pain free Pain Plan: Tylenol Dilaudid Tomorrow's Labs & Rationales: None
--- NOTE | 2016-09-26 10:36 | Patient Discharge Instructions ---
Discharge Instructions General Discharge Information You were seen/treated for: ALCOHOL WITHDDRAWAL You had these procedures: none Special Instructions: please follow up with your PCP within one week of discharge. Diet Continue normal diet: Yes Activity Full Activity/No Limits: Yes Acute Coronary Syndrome Inclusion Criteria At DC or during hospital stay patient has or had the following: ACS DIAGNOSIS No Discharge Core Measures Meds if any: Prescribed or Continued at Discharge Meds if any: NOT Prescribed or Continued at Discharge Congestive Heart Failure Inclusion Criteria At DC or during hospital stay patient has or had the following: CHF DIAGNOSIS No Discharge Core Measures Meds if any: Prescribed or Continued at Discharge Meds if any: NOT Prescribed or Continued at Discharge Cerebrovascular accident Inclusion Criteria At DC or during hospital stay patient has or had the following: CVA/TIA Diagnosis No Discharge Core Measures Meds if any: Prescribed or Continued at Discharge Meds if any: NOT Prescribed or Continued at Discharge Venous thromboembolism Inclusion Criteria VTE Diagnosis No VTE Type NONE VTE Confirmed by (Test) NONE Discharge Core Measures - Per Current guidelines, there needs to be overlap - treatment for the first 5 days of Warfarin therapy. - If discharged on Warfarin prior to 5 days of - overlap therapy, the patient will need to be - assessed for post discharge needs including - *Post discharge parental anticoagulation - *Warfarin and/or parental anticoagulation education - *Follow up date to check INR post discharge At least 5 days overlap therapy as Inpatient No Meds if any: Prescribed or Continued at Discharge Note: Overlap Therapy is Warfarin and Anticoagulant Meds if any: NOT Prescribed or Continued at Discharge
--- NOTE | 2016-09-26 12:14 | PN- Att Addend ---
Attending Addendum Attending Brief Note Patient seen and examined, overall feeling much better now. Still complains of pain in his right lateral chest from the rib fractures. Vital Signs Date Time Temp Pulse Resp B/P B/P Pulse O2 O2 Flow FiO2 Mean Ox Delivery Rate 09/26 0636 97.9 57 18 130/82 95 Room Air 09/26 0600 97.9 57 18 130/82 09/26 0211 98.9 60 20 134/76 94 Room Air 09/26 0200 98.9 60 20 134/76 09/26 0000 93 Room Air 09/25 2232 97.7 61 20 116/62 93 Room Air 09/25 1539 97.7 61 20 116/62 93 Room Air on exam; aox3, nad. cv; s1,s2, rrr resp; clear with bs at bases. abd; soft, nt, bs+ ext; no edema. Laboratory Tests 09/26 634 Chemistry Sodium (137 - 145 mmol/L) 137 Potassium (3.5 - 5.1 mmol/L) 4.3 Chloride (98 - 107 mmol/L) 105 Carbon Dioxide (22 - 30 mmol/L) 29 Anion Gap (5 - 16) 4 L BUN (9 - 20 mg/dL) 12 Creatinine (0.7 - 1.2 mg/dL) 0.6 L Estimated GFR (>60 ml/min) > 60 BUN/Creatinine Ratio (7 - 25 %) 20.0 A/P; 42-year-old male with history significant for heavy alcohol use who was admitted with chest pain, found to have right-sided chest infected fracture, also had acute kidney injury on admission and had alcohol withdrawal. Acute kidney injury has been resolved. Patient has been switched to by mouth Librium with a taper. Continue MVI, thiamine and folate. Can start the patient on scheduled Tylenol for pain control. Can use 650 mg every 6 hours scheduled. Continue when necessary narcotics but would recommend changing Dilaudid to oral. DVT px; Lovenox. PLease ambulate the patient andobtain PT eval if needed.
[2016-09-26 14:49] VITALS: BP 110/79
--- NOTE | 2016-09-26 16:06 | NUR ---
Referral received via casefind. This patient is a 50 year old man, admitted to the hospital on 09/19/16 after a fall, and he subsequently began to have symptoms of withdrawal. He was placed in [facility]; had sugnificant signs and symptoms of withdrawal treated with ativan, and was transferred to [facility] yesterday. He is currently on librium; but much more alert and oriented. Armand reports intention to return to ; will not consider higher level of care as "work comes first; I have bills to pay". No longer on probation and not in treatment with [facility] "I've completed every program they have". Please call if other social work needs arise.
[2016-09-26 23:14] VITALS: BP 102/60
[2016-09-27] VITALS (8 sets, daily range): BP systolic 102–130; BP diastolic 60–74
--- NOTE | 2016-09-27 08:20 | PN- Housestaff ---
CHAPIN BLACKWELL 09/27/16 0820: Subjective Follow-up For: Alcohol detoxification Alcohol withdrawal Status post mechanical fall Right fifth and sixth rib fractures Complaints: pain scale (0-10) Subjective: Patient was seen and examined this morning. He is alert awake and oriented to time place and person. No acute events noticed overnight. He was transferred from ICU to general medicine floor after management of alcohol detoxification. Ativan drip was discontinued. His CIWA score were 0. He denied any tremors, shaking, anxiety, hallucinations. He does report 2 out of 10 pain at the site of rib fractures. Relieved with the pain medications. Vitals remained stable. Afebrile, heart rate 57, respiratory rate 18, blood pressure 130/82, saturating at 95 on room air. Review of Systems Constitutional: Reports: no symptoms. Objective Last 24 Hrs of Vital Signs/I&O Vital Signs Date Time Temp Pulse Resp B/P B/P Pulse O2 O2 Flow FiO2 Mean Ox Delivery Rate 09/27 1435 98.2 85 18 122/70 94 Room Air 09/27 0600 98.2 61 18 114/70 09/27 0600 98.5 60 18 126/74 96 Room Air 09/27 0400 98.2 61 18 114/70 09/27 0200 98.2 61 18 114/70 09/27 0200 98.2 61 18 114/70 94 Room Air 09/27 0000 97.3 62 20 102/60 09/26 2314 97.3 62 20 102/60 92 Room Air Intake & Output 09/27 1600 09/27 0800 09/27 0000 Intake Total 900 200 270 Output Total Balance 900 200 270 Intake, IV 100 30 Intake, Oral 800 200 240 Number 1 Bowel Movements Physical Exam General Appearance: Alert, Oriented X3, Cooperative, No Acute Distress Skin: No Rashes, No Breakdown HEENT: Atraumatic, PERRLA Neck: Supple, No JVD, No thryomegaly Lymphatic: Cervical nl Cardiovascular: Normal S1, Normal S2 Lungs: Normal Air Movement Abdomen: Normal Bowel Sounds, Soft, No Tenderness Extremities: No Clubbing, No Cyanosis, No Edema Vascular: Normal Pulses, Pulses Symmetrical Current Medications: Current Medications Sig/Nidhi Start time Last Medication Dose Route Stop Time Status Admin Acetaminophen 650 MG .STK-MED ONE 09/27 0542 DC PO 09/27 0543 Acetaminophen 650 MG Q6 09/26 1356 AC 09/27 PO 1209 Acetaminophen 1,000 MG Q6P PRN 09/19 2015 AC IV Chlordiazepoxide HCl 10 MG 1000 09/30 1000 AC PO 09/30 1001 Chlordiazepoxide HCl 25 MG ONCE ONE 09/29 1000 AC PO 09/29 1001 Chlordiazepoxide HCl 50 MG ONCE ONE 09/28 1000 AC PO 09/28 1001 Chlordiazepoxide HCl 50 MG Q12H 09/27 1800 AC PO 09/27 2300 Chlordiazepoxide HCl 30 MG Q6 09/27 1200 CAN PO Chlordiazepoxide HCl 50 MG Q8 09/26 1400 DC 09/27 PO 0543 Enoxaparin Sodium 40 MG DAILY 09/25 1000 AC 09/27 SC 0928 Ferrous Sulfate 325 MG DAILY 09/25 1000 AC 09/27 PO 0928 Folic Acid 1 MG DAILY 09/26 1355 AC 09/27 PO 0928 Hydromorphone HCl 1 MG Q4P PRN 09/26 1400 AC PO Ibuprofen 600 MG .STK-MED ONE 09/26 1956 DC PO 09/26 1957 Ibuprofen 600 MG Q6P PRN 09/19 2015 AC 09/26 PO 1956 Lorazepam 1 MG Q2P PRN 09/26 1000 AC PO Magnesium Oxide 400 MG BID 09/24 1000 AC 09/27 PO 0928 Multivitamins 1 TAB DAILY 09/26 1355 AC 09/27 PO 0928 Thiamine HCl 250 MG DAILY 09/23 1000 DC 09/27 Sodium Chloride 100 ML IV 09/27 1030 0928 Assessment/Plan Assessment: This is a 50-year-old gentleman with past medical history of alcohol dependence with history of previous alcohol withdrawal seizure on multiple occasions, ICU admission including intubation for alcohol withdrawal, cocaine abuser, prior episode of pancreatitis, peptic ulcer disease, no other significant past medical history, current cocaine abuser came in with chief complaint off pain in the right side of the chest after a mechanical fall and hallucinations and delirious secondary to alcohol withdrawal. reQuesting for alcohol detoxification Vitals on admission MAXIMUM TEMPERATURE of 98.9, he was tachycardic with average rate around 100-120, blood pressure was found to be systolic ranging from 104- 167, diastolic ranging from 60-90 mmHg, he was 99% saturating on room air. White count of 13.3, H/H of 16.1/47.6, platelet count of 107 (baseline around 100 in the year of 2016, last value noted to be 292 in 2015, most of the platelets in 2016 have been on the lower side). INR of 1.08. ABG pH of 7.47/PCO2 of 33, PO2 of 93, bicarbonate 23, carboxyhemoglobin of 1.4. Sodium of 129, potassium of 3.5, chloride of 95, bicarbonate 24, anion gap of 10 , creatinine of 2.3 (baseline 0.9), BUN of 37, glucose of 105, initial lactic acid was negative at 0.8. UA essentially negative. Urine toxicology positive for cocaine. Serum alcohol level less than 10. CT head did not show any acute intracranial pathology. CT chest showed right lateral fifth rib fracture, which was mildly displaced, nondisplaced right lateral sixth rib fracture as well, along with chronic osteoarthritis changes. No pneumothorax or lung contusion was noted. Foot x-ray did not show any acute fracture or dislocation. CT cervical spine did not demonstrate any acute fracture. He was admitted to the ICU for alcohol withdrawal, very high CIWAS, warranting IV Ativan drip and close monitoring at the critical care unit. Problem list along with assessment and plan #1 alcohol withdrawal #2 acute kidney injury, likely prerenal. #3 rhabdomyolysis. #4 anion gap metabolic acidosis secondary to alcohol intoxication. #5 thrombocytopenia most likely secondary to alcohol, chronic in nature. #6 leukocytosis most likely reactive. #7 hyponatremia. #8 hypokalemia. #9 transaminitis secondary to alcoholism #10 mechanical fall with right fifth and sixth rib fracture. #Hyperactive delirium secondary to alcohol withdrawal/ DT/ possible wernicke He was admitted to the ICU for alcohol withdrawal, very high CIWAS, warranting IV Ativan drip and close monitoring at the critical care unit. * Ativan drip was DC'd 09/22/2016. * Soft restraint and jose luis was DC'd. * Sitter was discontinued * mentating well, off from ativan * Transfer to general medicine floor on 09/25/2016 * Continue to monitor CIWA, scores running low * Continue patient on Librium 50 mg every12 hours today * We'll continue to taper Librium * Ativan per CIWA as required * Continue thiamine 250 mg IV daily for 2 more days.(wernicke) * Multivitamin * Folate * Patient has a long history of substance abuse we will follow psych recommendations. #Acute kidney injury/Rhabdomyolysis/Dehydration(resolved). He had elevated creatinine kinase and creatinine elevated up to 2.3. He was dehydrated, the worsening creatinine could also be secondary to rhabdo, he needed IV hydration. * Acute kidney injury resolved * Bun and creatinine were normal * IV fluids discontinued * Avoid NSAID * Avoid nephrotoxins Hypokalemic/hypomagnesemic. Anion gap metabolic acidosis secondary to alcohol intoxication. * repleted potassium/magnesium to keep potassium above 4 and magnesium above 2. * Potassium and magnesium were normal. #Chronic thrombocytopenia(resolved) * Thrombocytopenia at 107, platelets have been low since last 1-1/2 years. * Continued to trend platelets. * H&H stable, most likely hemoconcentrated due to dehydration. * Improved to 322 from 107 on admission #Leukocytosis(resolved) Reactive luecocytosis * Patient did not have any fever, vitals stable. * No evidence of any kind of infection. * Mildly elevated white count most likely reactive. * Continue to follow. #Fifth and sixth right rib fractures * Pain management as necessary * Scheduled Tylenol 650 mg every 6 hours * Intensive spirometry as tolerated * Saturating greater than 95% on room air, no apparent respiratory distress. * ABG showed anion gap metabolic acidosis. * CXR negative. #Macrocytic anemia -B12 and folic acid within normal limits -Low iron and TIBC were normal ferritin. -His anemia most likely secondary to alcohol abuse. Toxic encephalopathy * Patient was hallucinating, confused, not alert and oriented. * Continue IV Ativan. * No focal neurological deficits. * Altered mental status secondary to toxic encephalopathy 2/2 to alcohol intoxication. * Order #7 was called at the emergency department as the patient was extremely agitated. * One time of Haldol was given. * Haldol when necessary if extremely agitated, watch Qtc. DVT PPx: Mechanical and pharmacological Diet: Heart healthy Full code Problem List: 1. Rib fractures 2. Alcohol dependency 3. Rib injury Pain Ratin Pain Location: right rib pain Pain Goal: Remain pain free Pain Plan: Tylenol Tomorrow's Labs & Rationales: none BOOGIE WHEAT MD 09/27/16 1324: Attending Review Statement Attending Statement Attending MD Statement: examined this patient, discuss w/resident/PA/COMMERCIAL APPRAISER, agreed w/resident/PA/COMMERCIAL APPRAISER, reviewed EMR data (avail), discussed with nursing, discussed with case mgmt, reviewed images, amended to note Attending Assessment/Plan: Patient seen and examined, overall feeling better. Claims that pain has improved on the right side from rib fracture. CIWA scores are running low. Vital signs are stable. Agree with Librium taper. Patient wants to go home tomorrow. We can discharge him on further Librium taper to be done at home. I counseled the patient on taking edema as directed and make sure that he does not drink any alcohol. Continue multiple vitamin folate and thiamine and will plan for his discharge tomorrow. Continue all other current medications. Patient on Lovenox for DVT prophylaxis.
[2016-09-27] MEDS ORDERED: CHLORDIAZEPOXID25 M3 PO ×2 (09:51→13:41)
[2016-09-27] MEDS ORDERED: CHLORDIAZEPOXID10 M2 PO ×2 (13:41→16:40)
[2016-09-27] MEDS ORDERED: FOLIC ACID1 M1 PO (16:40)
[2016-09-27] MEDS ORDERED: TYLENOL325 M1 PO (16:40)
[2016-09-27] MEDS ORDERED: FERROUS SULFAT325 M2 PO (16:40)
[2016-09-27] MEDS ORDERED: ONE DAILY MULT1 EAC2 PO (16:40)
[2016-09-27] MEDS ORDERED: THIAMINE HCL100 M1 PO (16:42)
--- NOTE | 2016-09-27 17:20 | NUR ---
Sw into see pt after speaking with MD who reported she thinks pt will be leaving tomorrow. Pt reports he is not looking for IOP or higher level of care. Pt reports he was substance free for 9months and 2.5 years free from cocaine and feels he has stopped using again. Last used cocaine saturday; one line given to him while he was drinking. Pt reports he will follow up with AA which he attends 3-5 times a week. Pt reports he can go back to a group at [facility] where he last had weekly group, 10 months ago, when he last obtain sobrity. pT REPORTS HE LIVES WITH HIS 19 YO SON WHO SUPPORTS SOBRIETY. sW AVAILBLE UPON REQUEST.
[2016-09-28 06:01] VITALS: BP 110/70
--- NOTE | 2016-09-28 08:32 | PN- Housestaff ---
CHAPIN BLACKWELL 09/28/16 0832: Subjective Follow-up For: Alcohol detoxification Alcohol withdrawal Status post mechanical fall Right fifth and sixth rib fractures Complaints: pain scale (0-10) Subjective: Patient was seen and examined this morning. He is alert awake and oriented to time place and person. No acute events noticed overnight. He was transferred from ICU to general medicine floor after management of alcohol detoxification. Ativan drip was discontinued. His CIWA score were 0. He denied any tremors, shaking, anxiety, hallucinations. He does mild pain at the site of rib fractures. Relieved with the pain medications. Vitals remained stable. Afebrile, heart rate 57, respiratory rate 18, blood pressure 130/82, saturating at 95 on room air. Review of Systems Constitutional: Reports: no symptoms. Objective Last 24 Hrs of Vital Signs/I&O Vital Signs Date Time Temp Pulse Resp B/P B/P Pulse O2 O2 Flow FiO2 Mean Ox Delivery Rate 09/28 0601 97.5 59 20 110/70 94 Room Air 09/27 2211 98.1 79 18 110/60 94 09/27 2000 98.4 81 16 124/68 09/27 1600 98.1 71 16 130/70 09/27 1435 98.2 85 18 122/70 94 Room Air Intake & Output 09/28 1600 09/28 0800 09/28 0000 Intake Total 510 Output Total Balance 510 Intake, IV 10 Intake, Oral 500 Physical Exam General Appearance: Alert, Oriented X3, Cooperative, No Acute Distress Skin: No Rashes, No Breakdown HEENT: Atraumatic, PERRLA, EOMI, Mucous Membr. moist/pink Neck: Supple, No JVD Lymphatic: Cervical nl Cardiovascular: Normal S1, Normal S2 Lungs: Normal Air Movement Abdomen: Normal Bowel Sounds, Soft, No Tenderness Neurological: Normal Speech, Strength at 5/5 X4 Ext, Normal Tone, Sensation Intact, Cranial Nerves 3-12 NL Extremities: No Clubbing, No Cyanosis, No Edema Vascular: Pulses Symmetrical Current Medications: Current Medications Sig/Nidhi Start time Last Medication Dose Route Stop Time Status Admin Acetaminophen 650 MG .STK-MED ONE 09/28 0535 DC PO 09/28 0536 Acetaminophen 650 MG .STK-MED ONE 09/28 0007 DC PO 09/28 0008 Acetaminophen 650 MG .STK-MED ONE 09/27 1740 DC PO 09/27 1741 Acetaminophen 650 MG Q6 09/26 1356 DCD 09/28 PO 0534 Acetaminophen 1,000 MG Q6P PRN 09/19 2014 DCD IV Chlordiazepoxide HCl 10 MG 1000 09/30 1000 DCD PO 09/30 1001 Chlordiazepoxide HCl 25 MG ONCE ONE 09/29 1000 DCD PO 09/29 1001 Chlordiazepoxide HCl 50 MG ONCE ONE 09/28 1000 DC 09/28 PO 09/28 1001 1108 Chlordiazepoxide HCl 50 MG Q12H 09/27 1800 DC 09/27 PO 09/27 2300 1740 Enoxaparin Sodium 40 MG DAILY 09/25 1000 DCD 09/27 SC 0928 Ferrous Sulfate 325 MG DAILY 09/25 1000 DCD 09/28 PO 1104 Folic Acid 1 MG DAILY 09/26 1355 DCD 09/28 PO 1104 Hydromorphone HCl 1 MG Q4P PRN 09/26 1400 DCD PO Ibuprofen 600 MG Q6P PRN 09/19 2014 DCD 09/26 PO 1956 Lorazepam 1 MG Q2P PRN 09/26 1000 DCD PO Magnesium Oxide 400 MG BID 09/24 1000 DCD 09/28 PO 1104 Multivitamins 1 TAB DAILY 09/26 1355 DCD 09/28 PO 1104 Assessment/Plan Assessment: This is a 50-year-old gentleman with past medical history of alcohol dependence with history of previous alcohol withdrawal seizure on multiple occasions, ICU admission including intubation for alcohol withdrawal, cocaine abuser, prior episode of pancreatitis, peptic ulcer disease, no other significant past medical history, current cocaine abuser came in with chief complaint off pain in the right side of the chest after a mechanical fall and hallucinations and delirious secondary to alcohol withdrawal. reQuesting for alcohol detoxification Vitals on admission MAXIMUM TEMPERATURE of 98.9, he was tachycardic with average rate around 100-120, blood pressure was found to be systolic ranging from 104- 167, diastolic ranging from 60-90 mmHg, he was 99% saturating on room air. White count of 13.3, H/H of 16.1/47.6, platelet count of 107 (baseline around 100 in the year of 2015, last value noted to be 292 in 2014, most of the platelets in 2016 have been on the lower side). INR of 1.08. ABG pH of 7.47/PCO2 of 33, PO2 of 93, bicarbonate 23, carboxyhemoglobin of 1.4. Sodium of 129, potassium of 3.5, chloride of 95, bicarbonate 24, anion gap of 10 , creatinine of 2.3 (baseline 0.9), BUN of 37, glucose of 105, initial lactic acid was negative at 0.8. UA essentially negative. Urine toxicology positive for cocaine. Serum alcohol level less than 10. CT head did not show any acute intracranial pathology. CT chest showed right lateral fifth rib fracture, which was mildly displaced, nondisplaced right lateral sixth rib fracture as well, along with chronic osteoarthritis changes. No pneumothorax or lung contusion was noted. Foot x-ray did not show any acute fracture or dislocation. CT cervical spine did not demonstrate any acute fracture. He was admitted to the ICU for alcohol withdrawal, very high CIWAS, warranting IV Ativan drip and close monitoring at the critical care unit. Problem list along with assessment and plan #1 alcohol withdrawal #2 acute kidney injury, likely prerenal. #3 rhabdomyolysis. #4 anion gap metabolic acidosis secondary to alcohol intoxication. #5 thrombocytopenia most likely secondary to alcohol, chronic in nature. #6 leukocytosis most likely reactive. #7 hyponatremia. #8 hypokalemia. #9 transaminitis secondary to alcoholism #10 mechanical fall with right fifth and sixth rib fracture. #Hyperactive delirium secondary to alcohol withdrawal/ DT/ possible wernicke He was admitted to the ICU for alcohol withdrawal, very high CIWAS, warranting IV Ativan drip and close monitoring at the critical care unit. * Ativan drip was DC'd 09/22/2016. * Soft restraint and jose luis was DC'd. * Sitter was discontinued * mentating well, off from ativan * Transfer to general medicine floor on 09/25/2016 * Continue to monitor CIWA, scores running 0. * Continue patient on Librium 50 mg today * We'll continue to taper Librium, Librium 25 mg on Saturday, 10 mg on Saturday. * Ativan per CIWA as required * Continue thiamine 250 mg IV daily for 2 more days.(wernicke) * Multivitamin * Folate * Patient has a long history of substance abuse we will follow psych recommendations. #Acute kidney injury/Rhabdomyolysis/Dehydration(resolved). He had elevated creatinine kinase and creatinine elevated up to 2.3. He was dehydrated, the worsening creatinine could also be secondary to rhabdo, he needed IV hydration. * Acute kidney injury resolved * Bun and creatinine were normal * IV fluids discontinued * Avoid NSAID * Avoid nephrotoxins Hypokalemic/hypomagnesemic. Anion gap metabolic acidosis secondary to alcohol intoxication. * repleted potassium/magnesium to keep potassium above 4 and magnesium above 2. * Potassium and magnesium were normal. #Chronic thrombocytopenia(resolved) * Thrombocytopenia at 107, platelets have been low since last 1-1/2 years. * Continued to trend platelets. * H&H stable, most likely hemoconcentrated due to dehydration. * Improved to 322 from 107 on admission #Leukocytosis(resolved) Reactive luecocytosis * Patient did not have any fever, vitals stable. * No evidence of any kind of infection. * Mildly elevated white count most likely reactive. * Continue to follow. #Fifth and sixth right rib fractures * Pain management as necessary * Scheduled Tylenol 650 mg every 6 hours * Intensive spirometry as tolerated * Saturating greater than 95% on room air, no apparent respiratory distress. * ABG showed anion gap metabolic acidosis. * CXR negative. #Macrocytic anemia -B12 and folic acid within normal limits -Low iron and TIBC were normal ferritin. -His anemia most likely secondary to alcohol abuse. Toxic encephalopathy * No focal neurological deficits. * Altered mental status secondary to toxic encephalopathy 2/2 to alcohol intoxication. * Order #7 was called at the emergency department as the patient was extremely agitated. * One time of Haldol was given. * Haldol when necessary if extremely agitated, watch Qtc. DVT PPx: Mechanical and pharmacological Diet: Heart healthy Full code Problem List: 1. Alcohol abuse 2. Rib fractures Pain Ratin Pain Location: Right rib pain Pain Goal: Remain pain free Pain Plan: tylinol Tomorrow's Labs & Rationales: none BOOGIE WHEAT MD 09/28/16 1146: Attending MD Review Statement Attending Statement Attending MD Statement: examined this patient, discuss w/resident/PA/MAIL OPENER, agreed w/resident/PA/MAIL OPENER, reviewed EMR data (avail), discussed with nursing, discussed with case mgmt, amended to note Attending Assessment/Plan: Patient seen and examined, doing much better. Denies any complaints. Vital signs are stable and CIWA score running low. Patient is a Librium taper. He wants to go home and he is medically stable for discharge home. He will be given up discussion of Librium at 25 mg to be taken tomorrow and another prescription for nanograms to be taken on Saturday. That'll complete his sodium tapered. Patient was educated about not using any alcohol while he is on Librium and he affirms the fact that he understands it and would not use alcohol while he is on Librium. Patient to follow-up with the outpatient oncology of and he is interested in going to AA meetings. Patient will also follow-up with his primary care doctor as an outpatient.
[2016-09-28] MEDS ORDERED: FOLIC ACID1 M1 PO (10:33)
[2016-09-28] MEDS ORDERED: FERROUS SULFAT325 M2 PO (10:33)
[2016-09-28] MEDS ORDERED: CHLORDIAZEPOXID25 M3 PO (10:33)
[2016-09-28] MEDS ORDERED: ONE DAILY MULT1 EAC2 PO (10:33)
[2016-09-28] MEDS ORDERED: CHLORDIAZEPOXID10 M2 PO (10:33)
[2016-09-28] MEDS ORDERED: TYLENOL325 M1 PO (10:33)
[2016-09-28] MEDS ORDERED: THIAMINE HCL100 M1 PO (10:33)
--- NOTE | 2016-09-28 14:13 | Discharge Summary ---
Visit Information Visit Dates Admission Date: 09/19/16 Discharge Date: 09/28/16 Hospital Course Course Attending Physician: JUANITA GOMEZ MD Primary Care Physician: AMRITA HOPPER Consulting Request: Consulting Specialty: Psychiatry Hospital Course: This is a 50-year-old gentleman with past medical history of alcohol dependence with history of previous alcohol withdrawal seizures on multiple occasions, ICU admission including intubation for alcohol withdrawal, cocaine abuser, prior episode of pancreatitis, peptic ulcer disease, no other significant past medical history, current cocaine abuser came in with chief complaint of pain in the right side of the chest after a mechanical fall and hallucinations, delirious secondary to alcohol withdrawal reQuesting for alcohol detoxification Vitals on admission MAXIMUM TEMPERATURE of 98.9, he was tachycardic with average rate around 100-120, blood pressure was found to be systolic ranging from 104- 167, diastolic ranging from 60-90 mmHg, he was 99% saturating on room air. White count of 13.3, H/H of 16.1/47.6, platelet count of 107 (baseline around 100 in the year of 2015, last value noted to be 292 in 2014, most of the platelets in 2016 have been on the lower side). INR of 1.08. ABG pH of 7.47/PCO2 of 33, PO2 of 93, bicarbonate 23, carboxyhemoglobin of 1.4. Sodium of 129, potassium of 3.5, chloride of 95, bicarbonate 24, anion gap of 10 , creatinine of 2.3 (baseline 0.9), BUN of 37, glucose of 105, initial lactic acid was negative at 0.8. UA essentially negative. Urine toxicology positive for cocaine. Serum alcohol level less than 10. CT head did not show any acute intracranial pathology. CT chest showed right lateral fifth rib fracture, which was mildly displaced, nondisplaced right lateral sixth rib fracture as well, along with chronic osteoarthritis changes. No pneumothorax or lung contusion was noted. Foot x-ray did not show any acute fracture or dislocation. CT cervical spine did not demonstrate any acute fracture. He was admitted to the ICU for alcohol withdrawal, very high CIWAS, warranting IV Ativan drip and close monitoring at the critical care unit. Problem list along with assessment and plan #1 alcohol withdrawal #2 acute kidney injury, likely prerenal. #3 rhabdomyolysis. #4 anion gap metabolic acidosis secondary to alcohol intoxication. #5 thrombocytopenia most likely secondary to alcohol, chronic in nature. #6 leukocytosis most likely reactive. #7 hyponatremia. #8 hypokalemia. #9 transaminitis secondary to alcoholism #10 mechanical fall with right fifth and sixth rib fracture. #Hyperactive delirium secondary to alcohol withdrawal/ DT/ possible wernicke He was admitted to the ICU for alcohol withdrawal, very high CIWAS, warranting IV Ativan drip and close monitoring at the critical care unit. He received Ativan drip for 3 days after which Ativan drip was discontinued. He was placed on soft point restraints and [place]. Later on restraints, sitter were discontinued. He was transferred to general medicine floor on 09/25/2016 once he was stable. His CIWA scores were low after transferring to the floor. He received Ativan based on CIWA scoring. He was started on Librium 75 mg and tapered down. He was discharged on Librium 25 mg on 09/29 and 10 mg on 09/30. He was advised to take multivitamin, thiamine, folate. Psych recommendations were followed. scaffold worker was consulted. Patient was advised to follow-up with primary care physician within one week after discharge. #Acute kidney injury/Rhabdomyolysis/Dehydration(resolved). He had elevated creatinine kinase and creatinine elevated up to 2.3. He was dehydrated, the worsening creatinine could be secondary to rhabdo. Acute kidney injury was resolved after receiving IV fluids. His creatinine was improved. Creatinine kinase was improved. NSAIDS, nephrotoxins avoided. #Hypokalemic/hypomagnesemic. Anion gap metabolic acidosis secondary to alcohol intoxication. repleted potassium/magnesium to keep potassium above 4 and magnesium above 2. Potassium and magnesium were normal at the time of discharge. #Chronic thrombocytopenia(resolved) Thrombocytopenia at 107, platelets have been low since last 1-1/2 years. Continued to trend platelets. Improved to 322 from 107 on admission #Leukocytosis(resolved) Reactive luecocytosis Patient did not have any fever, vitals stable. No evidence of any kind of infection. Mildly elevated white count most likely reactive. WBC count was normal at the time of discharge #Fifth and sixth right rib fractures He received conservative pain management for rib fractures. Received scheduled Tylenol 650 mg every 6 hours. Received incentive spirometry. Monitor vitals every shift. Maintain oxygen saturations greater than 95%. #Macrocytic anemia B12 and folic acid within normal limits Low iron and TIBC were normal His anemia most likely secondary to alcohol abuse. Toxic encephalopathy He has No focal neurological deficits. Altered mental status secondary to toxic encephalopathy 2/2 to alcohol intoxication. DVT PPx: Mechanical and pharmacological Diet: Heart healthy Full code Complications: none Allergies: Coded Allergies: Penicillins (ITCHINESS 01/05/16) tramadol (DOESN'T REMEMBER 01/05/16) Significant Procedures: none Pertinent Lab Results: cxr FINDINGS: Cardiac leads overlie the chest. There is a patchy retrocardiac opacity. No pleural effusion or pneumothorax. The cardiomediastinal silhouette is within normal limits. No acute osseous abnormality. IMPRESSION: Retrocardiac opacity which could represent atelectasis or pneumonia. Aspiration is a consideration. head ct IMPRESSION: 1. No acute intracranial findings. 2. No acute fracture or malalignment of the cervical spine. Degenerative changes at C5-C6 and C6-C7. 3. Redemonstration of a right nasal cavity polyp. foot xray IMPRESSION: No acute fracture or dislocation. Mild degenerative changes with chronic changes at the second metatarsophalangeal joint. chest ct IMPRESSION: 1. Right lateral fifth rib fracture with mild overlying pleural thickening. No pneumothorax or lung contusion. 2. Nondisplaced right lateral sixth rib fracture. 3. No additional traumatic findings of the chest, abdomen, or pelvis. Colonic diverticulosis. Disposition Summary Disposition Principal Diagnosis: Alcohol detoxification Alcohol withdrawal Status post mechanical fall Right fifth and sixth rib fractures Additional Diagnosis: none Discharge Disposition: home or self care Discharge Instructions General Discharge Information Code Status: Full Code Patient's Diet: as Tolerated Patient's Activity: As tolerated Follow-Up Instructions/Appts: Please follow-up with your primary care physician within one week after discharge. Medications at Discharge Discharge Medications: Start taking the following new medications: Chlordiazepoxide HCl (Chlordiazepoxide HCl) 25 MG CAPSULE 1 Capsule ORAL DAILY Qty = 1 No Refills Instructions: Take one (total of 25 mg) on Saturday Chlordiazepoxide HCl (Chlordiazepoxide HCl) 10 MG CAPSULE 1 Capsule ORAL DAILY Qty = 1 No Refills Instructions: take 10 mg capsule on saturday. Acetaminophen (Tylenol) 325 MG TABLET 650 Milligram ORAL EVERY SIX HOURS as needed for pain Qty = 60 No Refills Instructions: . Comments: TAKE NEEDED Ferrous Sulfate (Ferrous Sulfate) 325 MG (65 MG IRON) TABLET. 325 Milligram ORAL DAILY Qty = 30 No Refills Instructions: . Comments: Last Taken:09/28/16 Time:1000 Folic Acid (Folic Acid) 1 MG TABLET 1 Milligram ORAL DAILY Qty = 30 No Refills Instructions: . Comments: Last Taken:09/28/16 Time:1000 Multivitamin (One Daily Multivitamin) 1 EACH TABLET 1 Tablet ORAL DAILY Qty = 30 No Refills Instructions: . Comments: Last Taken:09/28/16 Time:1000 Thiamine HCl (Thiamine HCl) 100 MG TABLET 1 Tablet ORAL DAILY Qty = 30 No Refills Instructions: . Comments: Last Taken:09/28/16 Time:1000 Copies To: AMRITA HOPPER Last Taken:09/28/16 Time:1000 Thiamine HCl (Thiamine HCl) 100 MG TABLET 1 Tablet ORAL DAILY Qty = 30 No Refills Instructions: . Comments: Last Taken:09/28/16 Time:1000 Copies To: AMRITA HOPPER
== END 2016-09-28 12:00 | DRG 774 ==
LOC: ERH 14:22 → 2NA 18:35 → CRI 18:35 → 2NA 18:35 → ERHI 18:35 → ENRESERV 20:22 → ENTRNSPT 21:16 → CRI 21:32 → CMPTRNSPT 21:45 → CRI 22:19 → 2NA 09-25 15:34 → ENPENDDIS 09-28 11:01 → 2NA 09-28 12:00
PROVIDERS: Internal Medicine; Physician Assistant; Student in an Organized Health Care Education/Training Program; ADMIT Internal Medicine
DX: F10.231 Alcohol dependence with withdrawal delirium (principal); F14.10 Cocaine abuse, uncomplicated; Y90.0 Blood alcohol level of less than 20 mg/100 ml; S22.41XA Multiple fractures of ribs, right side, initial encounter for closed fracture; W17.89XA Other fall from one level to another, initial encounter; Y92.9 Unspecified place or not applicable; G92 Toxic encephalopathy; E87.1 Hypo-osmolality and hyponatremia; E86.0 Dehydration; D69.6 Thrombocytopenia, unspecified; N17.9 Acute kidney failure, unspecified; T79.6XXA Traumatic ischemia of muscle, initial encounter; M62.82 Rhabdomyolysis; E87.2 Acidosis; E87.6 Hypokalemia; R74.0 Nonspecific elevation of levels of transaminase and lactic acid dehydrogenase [LDH]; E83.42 Hypomagnesemia; D53.9 Nutritional anemia, unspecified; K76.9 Liver disease, unspecified; Z87.11 Personal history of peptic ulcer disease; D72.828 Other elevated white blood cell count; E87.3 Alkalosis; E51.2 Wernicke's encephalopathy; J33.9 Nasal polyp, unspecified; J98.11 Atelectasis; M50.30 Other cervical disc degeneration, unspecified cervical region
CPT/HCPCS: 2NAP; CCU; 36415; 73630-RT; 74176; 80307; 81001; 82436; 87070; 93005; 93010; 96360; 96361; 96365; 97112-GO; 97116-GO; 97161-GP; 97530-GO; 99291; G0480; J1630; J1644; J1650; J2060; J3490; J7040; J7060